=== PATIENT | female | born 1950 | race Caucasian/White ===

== ENCOUNTER 2018-05-27 11:59 | Inpatient (IN) | payer MEDICARE, BC ==
[2018-05-27 12:52] LABS: #Basophils 0.1 thou/uL (0.0-0.2); #Eosinphils 0.3 thou/uL (0.0-0.7); #Lymphocytes 2.4 thou/uL (1.20-3.40); #Monocytes 0.8 thou/uL (0.11-0.59); #Neutrophils 4.9 thou/uL (1.40-6.50); %Basophils 0.8 % (0.0-1.0); %Eosinophils 3.2 % (0.0-10.0); %Monocytes 9.5 % (0.0-10.0); %Neutrophils 58.5 % (42.0-75.0); Hemoglobin 13.3 g/dL (12.0-16.0); Mean Corpuscular HGB CONC 32.3 g/dL (32.0-36.0); Mean Corpuscular Hemoglobin 29.6 pg (27.0-31.0); Mean Corpuscular Volume 91.5 fL (78.0-98.0); Mean Platelet Volume 6.8 fL (7.4-10.4); Platelet Count 336 thou/uL (130-400); RBC Distribution Width 11.9 % (11.5-14.5); Red Blood Cell (RBC) Count 4.49 mill/uL (4.20-5.40); White Blood Cell (WBC) Count 8.4 thou/uL (4.8-10.8)
[2018-05-27] MEDS ORDERED: Albuterol Sulfate 2.5 mg/0.5 ml Neb ONE ×2 (12:58)
--- NOTE | 2018-05-27 13:04 | RAD ---
FChest 2 views HISTORY: Dyspnea. Lung cancer. COMPARISON: 07/04/2015. FINDINGS: Cardiac silhouette and pulmonary vasculature are unremarkable. Lungs remain prominently hyp erinflated. Mediastinum is midline. No confluent airspace consolidation, pneumothorax, or pleural flu id. IMPRESSION: Severe emphysematous changes appear stable. No active cardiopulmonary abnormalities are o therwise demonstrated.
[2018-05-27 13:09] LABS: Actual Bicarbonate (HCO3a) 27.3 mEq/L (22-28); Analyzer IN Cardio ER; Base Excess (BEa) 3.5 mEq/L (-2.0 to +3.0); CO2 Tension 38.5 mmHg (35.0-45.0); Calcium, Ionized 1.22 mmol/L (1.12-1.30); Carboxyhemoglobin (COHb) 0.4 gm% (0.0-3.0); O2 Tension (PaO2) 65.5 mmHg (> 80.0); Potassium - ABG Lab 4.42 mmol/L (3.70-5.30); Puncture Site RRA; pH, Arterial 7.47 (7.35-7.45)
[2018-05-27 13:10] LABS: ALV-art Gradient 36.105 (0-20)
[2018-05-27 13:12] LABS: ALT (SGPT) 14 U/L (8-55); AST (SGOT) 24 U/L (5-34); Albumin 4.7 g/dL (3.4-4.8); Alkaline Phosphatase 101 U/L (40-150); Anion Gap 17 mmol/L (10-20); BUN (Urea Nitrogen) 18 mg/dL (9.8-20.1); Bilirubin, Total 0.7 mg/dL (0.2-1.2); CK (CPK) 161 U/L (29-168); Calc. Creatinine Clearance 0 mL/min (70-130); Calcium 10.3 mg/dL (7.8-10.44); Carbon Dioxide 27 mmol/L (23-31); Chloride 98 mmol/L (98-107); Estimated GFR-MDRD 76; Globulin 2.8 g/dL (2.4-3.5); Glucose 89 mg/dL (80-115); Lipase 32 U/L (8-78); Potassium 5.2 mmol/L (3.5-5.1); Protein, Total 7.5 g/dL (6.0-8.3); Sodium 137 mmol/L (136-145)
[2018-05-27] MEDS ORDERED: Dexamethasone 4 mg/ml Vial ONE (13:21)
[2018-05-27] MEDS ORDERED: Magnesium 2 GM/50 ML BAG (IN WATER) ONE (13:21)
[2018-05-27] MEDS ORDERED: Ondansetron PF 4 MG/2 ML Vial IVP PRN (15:26)
[2018-05-27] MEDS ORDERED: Sodium Chloride 0.9% 1,000 ML IV SCH (15:26)
[2018-05-27] MEDS ORDERED: Ondansetron ODT 4 MG TAB SL PRN (15:26)
[2018-05-27] MEDS ORDERED: Acetaminophen 325 MG TAB PO PRN (15:38)
[2018-05-27 16:10] LABS: Troponin I Less than 0.010 ng/mL (< 0.028)
[2018-05-27 18:03] VITALS: BMI 18.6
[2018-05-27 18:48] LABS: Troponin I Less than 0.010 ng/mL (< 0.028)
[2018-05-27] MEDS: methylPREDNISolone Sod Succ 40 MG VIAL IVP SCH (18:53)
[2018-05-27] MEDS ORDERED: Prevnar 13-Val Conj/PF 0.5 ML SYRINGE IM ONE (21:00)
[2018-05-27] MEDS ORDERED: Dexamethasone 10 MG in Sodium Chloride 0.9% 50 ML IVPB SCH (21:00)
--- NOTE | 2018-05-27 22:42 | HP ---
CHIEF COMPLAINT: Shortness of breath. HISTORY OF PRESENT ILLNESS: This patient is a 67-year-old female with history of COPD and emphysema requiring home oxygen. The patient has a nebulizer and then ProAir HFA inhaler. She reports that on May 20, she started having some increasing shortness of breath. She was using her home oxygen and her usual medications including the nebs which she had essentially stopped for a number of months. She seemed to get better during the day, but had a waxing and waning course, frequently having recurrences around 2 a.m. in the morning where she would awaken with more severe shortness of breath, use her nebs and would be able to get through. However, today the patient had usual followup with Dr. Mcmullen and was referred to the emergency department because of her breathing. The patient has a history of right lower lobe lung cancer and had to go for a followup CT scan prior to coming to the hospital. She states that she did not use her nebulizer treatment this morning. She does have a cough that is worse with nebulizers and producing yellow to whitish phlegm. She has chills. She has some subjective fever, but has been monitoring at home and has had no documented fevers. REVIEW OF SYSTEMS: Also notable for decreased appetite, especially in the mornings. She is using some nutritional supplementation. She has frequent diarrhea for the last 4 to 5 days. She reports she has lost 6 pounds since November. All other systems were reviewed and all pertinent positives and negatives are noted in the HPI. PAST MEDICAL HISTORY: Notable for the COPD and emphysema. She has had the right lower lobe lung cancer. She has been following with Dr. Zavaleta and has radiation therapy only. No surgery or chemotherapy. She has a history of right 5th and 6th rib fractures which she states have not healed properly, continue to cause some popping and have challenged her breathing further. PAST SURGICAL HISTORY: Lung biopsy. FAMILY HISTORY: Father of lung cancer. Mother at 95. SOCIAL HISTORY: The patient smoked a pack to a pack and half of cigarettes per day, but none now. Denies alcohol or drugs. She is . Her 's name is Дмитрий Luis. She is full code and her would be her surrogate decision maker. ALLERGIES: NONE. CURRENT MEDICATIONS: 1. Anoro Ellipta. 2. ProAir HFA. 3. Citalopram. PHYSICAL EXAMINATION: VITAL SIGNS: BP 145/74, pulse 95, respirations 24, temperature 97.9, O2 saturations 97% on room air, although the patient is wearing oxygen now and typically worse at her home, so I actually suspect that was more likely on supplemental oxygen. GENERAL APPEARANCE: Thin, age-appropriate female. She is tachypneic. She is able to speak reasonably well. She has no distress. HEENT: PERRL. No OP lesions. NECK: Supple and symmetric without lymphadenopathy, JVD, or carotid bruits. HEART: Regular rate and rhythm without murmurs, gallops, or rubs. LUNGS: Notable for being diminished. She has some scattered rales with modest wheezing. ABDOMEN: Soft, nontender, and nondistended. Positive bowel sounds. No masses. No organomegaly. EXTREMITIES: No cyanosis, clubbing, or edema. Peripheral pulses are present. SKIN: Reveals multiple superficial well-healed scars over the upper back with a couple of small superficial scabbed areas a few mm in size. PSYCH: The patient has generally normal affect and behavior. She appears to be a little bit excitable. NEURO: The patient is alert and oriented x3. Appears to be grossly intact with no evidence of focal deficits. LABORATORY DATA: Her EKG shows sinus tachycardia with occasional PVCs and some biatrial enlargement. Chest x-ray shows hyperinflated lungs consistent with COPD, but no consolidations. White count 8.4, hemoglobin 13.3, platelets 336. D-dimer was 0.27. ABG, pH 7.47, pCO2 38.5, PO2 65.5. Sodium 137, potassium 5.2, chloride 98, CO2 27, BUN 18, creatinine 0.76. LFTs are normal. ER COURSE: The patient received Decadron, Levaquin, DuoNeb and magnesium and says she is doing somewhat better. IMPRESSION AND PLAN: 1. Acute chronic obstructive pulmonary disease exacerbation. The patient is home oxygen-dependent because of chronic obstructive pulmonary disease and emphysema, symptomatically worse. Continue in observation status with nebulizer treatments, steroids, and cover what sounds like some associated bronchitis with yellowish sputum with Levaquin. The patient has had other long-acting beta agonist and steroid inhalers including Anoro Ellipta. However, she states that in the past she has had thrush with these and did not like the Anoro, may need to give some consideration to some type of an additional long-acting beta agonist or inhaled steroid at the time of discharge. 2. Chest pain. The patient reported some burning sensation with her chest, which I believe is simply due to chronic obstructive pulmonary disease. She will remain on telemetry and get a 3rd set of troponins to effectively rule that out. Job ID: [id number]
[2018-05-28] MEDS: methylPREDNISolone Sod Succ 40 MG VIAL IVP SCH ×5 (00:31→19:50)
[2018-05-28] MEDS: Citalopram 20 MG TAB PO SCH ×2 (08:44→08:45)
--- NOTE | 2018-05-28 19:47 | PRG ---
DATE OF SERVICE: 05/28/2018 SUBJECTIVE: Ms. Denton is a 67-year-old female with past medical history significant for right upper lobe non-small cell carcinoma, status post radiation ; history of breast cancer; and advanced COPD, who presented at the behest of Dr. Mcmullen with complaints of worsening shortness of breath since May 20. The patient states that she has had no relief at home from her nebulizer treatments or her rescue inhaler. She has been admitted with acute COPD exacerbation. Despite IV Solu-Medrol, antibiotics, and breathing treatments, the patient states that she has not experienced any relief as far as her dyspnea on exertion. She continues to feel very short of breath. She denies any chest pain, nausea, vomiting, fever, or chills. Her appetite remains good. She states that she gets exhausted and very short of breath with any conversation that she tries to have. OBJECTIVE: VITAL SIGNS: Blood pressure 134/76, pulse is 112, temperature 98.4 , O2 saturation is 96% on 3 L via nasal cannula. GENERAL: This is a very thin female, resting in bed, who does get visibly winded with conversation and speech. Pursed lip breathing HEENT: Head; atraumatic, normocephalic. Mucous membranes appear moist. There is no drainage. NECK: No apparent lymphadenopathy. Trachea is midline. No JVD. CV: S1 and S2. Regular rate. Mildly tachycardic. No appreciable murmurs, rubs, or gallops. LUNGS: Regular respiratory rate and pattern. I discern no crackles or rhonchi. Occasional expiratory wheeze, and overall decreased breath sounds throughout. ABDOMEN: Positive bowel sounds. Soft, nontender. EXTREMITIES: No edema. SKIN: No rashes. Warm and dry. LABORATORY DATA: White blood cell count 8.4, hemoglobin 13.3, hematocrit 41.1, MCV 91.5, platelets are 336. D-dimer less than 0.27. Blood gas yesterday on the revealed a pH of 7.47, pCO2 of 38.5, ABG pO2 of 65. Hematocrit 38, hemoglobin 13. Potassium 4.42. Chemistry; sodium was 137, chloride 98, BUN 18, creatinine 0.76. Liver function enzymes within normal limits. BNP 32. Troponin was negative. ASSESSMENT: 1. Acute chronic obstructive pulmonary disease exacerbation, with minimal improvement in symptoms despite IV steroids, antibiotics, and breathing treatments. 2. Chronic obstructive pulmonary disease/emphysema, oxygen dependent. 3. Right upper lobe lung cancer which I believe is non-small cell carcinoma per review of records, status post radiation. 4. History of breast cancer. 5. Chest pain at presentation, resolved. Acute coronary syndrome ruled out. PLAN: We will obtain labs in the morning. Given the patient's advanced COPD and minimal symptomatic improvement despite IV medical therapy, the patient does meet inpatient status. She is at high risk for complications and decompensation. We will consult Pulmonology for further recommendations for optimization of her medical therapy. Further recommendations based on hospital course. Care discussed with Dr. Gardner, who agrees with the above. Continue current management. Job ID: [id number] [facility]TDD
[2018-05-29] MEDS: methylPREDNISolone Sod Succ 40 MG VIAL IVP SCH ×2 (02:02→08:58)
[2018-05-29 07:13] LABS: #Lymphocytes 0.5 thou/uL (1.20-3.40); #Monocytes 0.3 thou/uL (0.11-0.59); #Neutrophils 12.6 thou/uL (1.40-6.50); %Basophils 0.2 % (0.0-1.0); %Eosinophils 0.2 % (0.0-10.0); %Lymphocytes 3.5 % (21.0-51.0); %Monocytes 2.4 % (0.0-10.0); %Neutrophils 93.8 % (42.0-75.0); Hemoglobin 10.8 g/dL (12.0-16.0); Mean Corpuscular HGB CONC 32.3 g/dL (32.0-36.0); Mean Corpuscular Hemoglobin 29.6 pg (27.0-31.0); Mean Corpuscular Volume 91.9 fL (78.0-98.0); Mean Platelet Volume 6.3 fL (7.4-10.4); Platelet Count 284 thou/uL (130-400); RBC Distribution Width 11.9 % (11.5-14.5); Red Blood Cell (RBC) Count 3.63 mill/uL (4.20-5.40); White Blood Cell (WBC) Count 13.4 thou/uL (4.8-10.8)
[2018-05-29] MEDS: Citalopram 20 MG TAB PO SCH ×2 (08:59)
--- NOTE | 2018-05-29 11:16 | PRG ---
DATE OF SERVICE: 05/29/2018 SUBJECTIVE: The patient is seen and examined at the bedside. She started feeling better. Her shortness of breath is improved. OBJECTIVE: VITAL SIGNS: Blood pressure is 117/62, pulse is 96, respiratory rate is 18, O2 saturation is 97% on 2 L by nasal cannula, temperature is 98.3, maximal temperature is 98.6. HEENT: Head is atraumatic and normocephalic. Eyes are PERRLA. Sclerae are nonicteric. Conjunctivae are palish. Oral mucosa is moist. NECK: Supple. LUNGS: Emphysematous. No crackles, rales. Very sporadic wheezing bilaterally. HEART: S1 and S2, somewhat tachycardic. No S3, no S4. ABDOMEN: Soft and nontender. Bowel sounds are present. No organomegaly. EXTREMITIES: No clubbing, cyanosis, or edema. NEUROLOGIC: She follows my commands. She moves her all four extremities. There are no any motor deficits. LABORATORY DATA: White count of 13.4, hemoglobin 10.8, hematocrit 33.4, and platelet count is 284,000. IMPRESSION: 1. Acute exacerbation of chronic obstructive pulmonary disease, emphysematous type. 2. Right upper lobe lung cancer, which is non-small cell carcinoma per records. 3. History of breast cancer. 4. Chest pain at presentation, resolved. Acute coronary syndrome was ruled out. PLAN: The patient is feeling better and her steroids started working. At this point, we will continue her current regimen. Pulmonology consult is requested. Dr. Ortiz is supposed to see her today, but for now, we will continue current regimen and DVT prophylaxis. Job ID: [id number]
--- NOTE | 2018-05-29 14:53 | CON ---
DATE OF CONSULTATION: 05/29/2018 SERVICE: Pulmonary Medicine. REASON FOR CONSULTATION: COPD exacerbation. HISTORY OF PRESENT ILLNESS: The patient is a 67-year-old white female with past medical history significant for horrendous COPD. She takes Anoro Ellipta. When she is breathing well, this medicine seems to do the trick. That being said, starting about 8 days ago, she felt like she just simply was not getting this medication anymore. She then had an increasing severe dyspnea. She had an increasing cough, but no sputum production. She denies any current fevers or chills. There are no sick contacts other than the cat, who is dying with cancer. Otherwise, she is in her usual state of health. She presented to the emergency department because she was having frequent episodes of waking up in the middle of the night short of breath. She was having any chest pain or palpitations. On one occasion, she had severe reflux type symptoms. In the emergency department, she was given steroids, nebulized medications, and antibiotics. She was also put on some oxygen. She is starting to feel a little bit better. Last night, she had an uneventful evening. She likes sleeping upright. PAST MEDICAL HISTORY: 1. Chronic hypoxic respiratory failure. 2. COPD, horrendous. 3. Right lower lobe cancer, status post radiation therapy only. PAST SURGICAL HISTORY: Lung biopsy. FAMILY HISTORY: Noncontributory. SOCIAL HISTORY: She has a greater than 50 pack-year history of smoking, but quit several years ago. Denies any alcohol or illicit drugs. She has no exposure to chemicals, dust, asbestos, or tuberculosis otherwise. ALLERGIES: NO KNOWN DRUG ALLERGIES. MEDICATIONS: List of her inpatient medications was reviewed. Multiple updates were made at this time. REVIEW OF SYSTEMS: General; head eyes, ears, nose, and throat; cardiovascular, respiratory, GI, , musculoskeletal, neurologic, and skin are negative, except as mentioned in the HPI. PHYSICAL EXAMINATION: VITAL SIGNS: Afebrile, pulse 114, blood pressure 126/58, respirations 20, saturation 93% on 2 L nasal cannula. GENERAL: The patient is awake and alert, in no apparent distress. LUNGS: Very reduced air entry. There is a prolonged expiratory phase. No crackles or wheezing is appreciated. That being said, she is really not moving enough air to appreciate adventitious sounds. HEART: Normal rate and regular. ABDOMEN: Soft, nontender, nondistended. Bowel sounds are positive. MUSCULOSKELETAL: No cyanosis or clubbing. No pitting in the bilateral lower extremities. NEUROLOGIC: Grossly nonfocal. LABORATORY DATA: WBC 13.4, hemoglobin 10.8, platelets 284,000. D-dimer less than the assay limit of 0.27. PH of 7.47, pCO2 of 38, pO2 of 65. This was on room air at the time. Basic metabolic profile and liver function studies are otherwise unremarkable. Troponin is negative x3. BNP 32. Blood cultures x2 are unremarkable. IMAGING STUDIES: Chest x-ray demonstrates profound hyperexpansion of the bilateral lung coronado. ASSESSMENT: 1. Acute on chronic hypoxic respiratory failure. 2. Chronic obstructive pulmonary disease with acute exacerbation. 3. Lung cancer, status post radiation therapy. DISCUSSION AND PLAN: The patient is doing fine from respiratory standpoint. She is progressing as expected. We will switch her steroids over to p.o. prednisone. We will continue our frequent nebulized medications. She would like to talk to Dr. Garland about a couple of things in the morning. The first is that she had a CT scan at the [facility] here recently and would like that to be reviewed. The second is that she does not think the Anoro is working well for her and would like to discuss whether or not different therapeutic options are available. Lastly, she will be traveling here soon and needs oxygen with an airline flight that is coming. She was excited to hear that Dr. Garland would be back tomorrow and should be available to answer some of those questions. 70 minutes have been devoted to this patient in various activities. I personally reviewed all imaging studies and laboratory data noted within this document. For fifty percent of this time, I was interacting with the patient at the bedside or coordinating care with the care team. For the remainder of the time I was immediately available to the patient in the hospital unit. Job ID: [id number] [facility]
[2018-05-30] MEDS: Citalopram 20 MG TAB PO SCH ×3 (07:23→14:47)
[2018-05-30] MEDS ORDERED: predniSONE 20 MG TAB PO SCH (08:00)
--- NOTE | 2018-05-30 13:27 | PRG ---
DATE OF SERVICE: 05/30/2018 SUBJECTIVE: The patient is seen and examined at the bedside. She is feeling better. She is awaiting her planting machine crewman, Dr. Garland to ask him several questions. OBJECTIVE: VITAL SIGNS: Blood pressure is 130/59, pulse is 95, temperature 98.0, respiratory rate is 20, O2 saturation is 96% on 2 L by nasal cannula. HEENT: Head is atraumatic and normocephalic. Eyes are PERRLA. Sclerae are nonicteric. Oral mucosa is moist. NECK: Supple. LUNGS: Very emphysematous. Few wheezes bilaterally at both bases. HEART: S1, S2 normal. No S3. No S4. ABDOMEN: Soft, nontender, nondistended. EXTREMITIES: No clubbing, cyanosis, or edema. NEUROLOGICAL: She is following my commands. She is able to move her all 4 extremities. There is no any sensory or motor deficits present. Cranial nerves are intact. LABORATORY DATA: None today. IMPRESSION: 1. Severe chronic obstructive pulmonary disease exacerbation. 2. Right upper lobe lung cancer, which is non-small cell carcinoma per records. 3. History of breast cancer. 4. Chest pain at presentation, resolved and acute coronary syndrome was ruled out. PLAN: Plan is to continue DuoNeb. Continue her levofloxacin. Continue her prednisone and will have followup visit with planting machine crewman, Dr. Garland today. Job ID: [id number]
--- NOTE | 2018-05-30 15:18 | PRG ---
DATE OF SERVICE: 05/30/2018 SUBJECTIVE: Isabella Denton's events have been reviewed. She is not back to her baseline. She is quite talkative and has numerous questions since she has written down. I am used to this in the office, and it actually did not bother me at all. OBJECTIVE: VITAL SIGNS: Heart rate varies between 80 and 115 depending on what she is doing, respiratory rate 16 to 20, she is on a 2 L cannula, oximetry is 95%, blood pressure 130/59. LUNGS: Distant with wheezes bilaterally. HEART: Regular rhythm. ABDOMEN: Soft. EXTREMITIES: Without edema. LABORATORY DATA: Blood gas on admission did not show hypercarbia surprisingly. She is normally not on oxygen when she comes to the office. Chest radiograph showed no infiltrates. IMPRESSION: Chronic obstructive pulmonary disease exacerbation, likely triggered by viral illness. PLAN: I would continue with IV steroids for now until she is a little bit better. 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 I would not be to send her home. She probably has the most severe COPD in my practice not on oxygen yet. 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 She could be switched to p.o. antimicrobial therapy in my opinion. I will add mucolytics. Job ID: [id number]
--- NOTE | 2018-05-30 15:27 | PQF ---
CLINICAL DOCUMENTATION IMPROVEMENT CLARIFICATION FORM: ICD-10 Updated PLEASE DO AN ADDENDUM TO THE PROGRESS NOTE WITH ANY DOCUMENTATION UPDATES OR ADDITIONS AND CARRY THROUGH TO DC SUMMARY. THANK YOU. Date: 05/30/2018; 05/31/2018 ATTN: Dr. Gallo/ Dr. Mike Please exercise your independent, professional judgment in responding to the clarification form. Clinical indicators are provided on the bottom of this form for your review Please check appropriate box(s): [ ] Underweight without malnutrition [ ] Cachexia [ ] Other diagnosis [ ] Unable to determine In addition, please specify: Present on Admission (POA): [ ] Yes [ ] No [ ] Unable to determine CLINICAL INDICATORS - SIGNS / SYMPTOMS / LABS H&P 05/27: ROS: notable decreased appetite, especially in the mornings. She has frequent diarrhea for the last 4-5 days. She reports she has lost 6 pounds since November. Flow Specialist Assessment 05/28: Nutrition dx: Underweight related to COPD as evidenced by BMI of 18.6 RISKS: H&P 05/27: Hx of COPD and emphysema requiring home oxygen. R lower lobe lung cancer. TREATMENT: Dietary Assessment triggered for BMI. Moderate Malnutrition (in acute illness) Energy Intake: <75% of estimated energy requirement for > 7 days Weight Loss: 1-2%/1 week; 5%/ 1 month; 7.5%/3 months Other: mild body fat loss; mild muscle mass loss; mild fluid accumulation; Severe Malnutrition (in acute illness) Energy Intake: < 50% of estimated energy requirement for > 5 days Weight Loss: >1-2%/1 week; >5%/1 month; >7.5%/3 months Other: moderate body fat loss; moderate muscle mass loss; moderate- severe fluid accumulation; measurably reduced credit relationship manager strength Moderate Malnutrition (in chronic illness) Energy Intake: <75% of estimated energy requirement for >1 month Weight Loss: 5%/1 month; 7.5%/3 months; 10%/6 months; 20%/1 year Other: mild body fat loss; mild muscle mass loss; mild fluid accumulation Severe Malnutrition (in chronic illness) Energy Intake: <75% of estimated energy requirement for >1 month Weight Loss: >5%/1 month; >7.5%/3 months; >10%/6 months; >20%/1 year Other: severe body fat loss; severe muscle mass loss; severe fluid accumulation; measurably reduced credit relationship manager strength Thank you, Zulema (This form is maintained as a part of the permanent medical record) 2015 [employer] All Rights Reserved Zulema Nettles RN, BSN [email or web address] Office: [phone] [facility]
[2018-05-30] MEDS: guaiFENesin ER 600 MG TAB PO SCH (20:42)
[2018-05-30] MEDS: methylPREDNISolone Sod Succ 40 MG VIAL IVP SCH (22:00)
[2018-05-31 06:50] LABS: #Lymphocytes 0.7 thou/uL (1.20-3.40); #Monocytes 0.3 thou/uL (0.11-0.59); %Basophils 0.4 % (0.0-1.0); %Eosinophils 0.4 % (0.0-10.0); %Monocytes 4.2 % (0.0-10.0); Mean Corpuscular HGB CONC 32.2 g/dL (32.0-36.0); Mean Corpuscular Hemoglobin 29.5 pg (27.0-31.0); Mean Corpuscular Volume 91.8 fL (78.0-98.0); Mean Platelet Volume 6.3 fL (7.4-10.4); Platelet Count 324 thou/uL (130-400); Red Blood Cell (RBC) Count 4.07 mill/uL (4.20-5.40); White Blood Cell (WBC) Count 8.2 thou/uL (4.8-10.8)
[2018-05-31 07:09] LABS: Anion Gap 12 mmol/L (10-20); BUN (Urea Nitrogen) 13 mg/dL (9.8-20.1); Calc. Creatinine Clearance 69 mL/min (70-130); Calcium 9.3 mg/dL (7.8-10.44); Carbon Dioxide 32 mmol/L (23-31); Chloride 97 mmol/L (98-107); Estimated GFR-MDRD Greater than 90; Glucose 133 mg/dL (80-115); Potassium 4.6 mmol/L (3.5-5.1); Sodium 136 mmol/L (136-145)
[2018-05-31] MEDS: guaiFENesin ER 600 MG TAB PO SCH ×2 (09:36→20:54)
[2018-05-31] MEDS: Citalopram 20 MG TAB PO SCH (09:37)
[2018-05-31] MEDS: methylPREDNISolone Sod Succ 40 MG VIAL IVP SCH ×2 (09:38→20:56)
--- NOTE | 2018-05-31 16:35 | PRG ---
DATE OF SERVICE: 05/31/2018 SUBJECTIVE: Isabella Denton is still getting extremely short of breath just walking to the bathroom. OBJECTIVE: VITAL SIGNS: She is afebrile, heart rate 119, respiratory rate 16, oximetry is 92 on room air and 96 on a cannula, blood pressure 159/76. GENERAL: She sat for 30 minutes after walking to the bathroom, trying to get her breath back. A lot of this is anxiety associated with her dyspnea, but she refuses to let me prescribe anxiolytics. LUNGS: Distant with no wheezes today. HEART: Regular rhythm. ABDOMEN: Soft. LABORATORY DATA: White count 8.2, hemoglobin 12.0, and platelets 324. Sodium 136, potassium 4.6, chloride 97, bicarb 32, BUN 13, and creatinine 0.63. IMPRESSION: 1. Near end-stage chronic obstructive pulmonary disease, but not on home oxygen. 2. Acute on chronic respiratory failure with no hypoxia or hypercarbia this admission documented by blood gas. 3. Cachexia secondary to her chronic obstructive pulmonary disease. 4. Deconditioning secondary to chronic obstructive pulmonary disease. I have written for physical therapy consult. She does start walking now, afraid she never walk again. Her anxiety is a big problem, but she refuses to accept any type of prescription medication for that. She is on citalopram, that is all she wants to take. She says that was started to help her gain weight. She has somewhat of an obsessive-compulsive personality, but she was treating when she smoked with cigarettes. She no longer smokes from what she has told me. Hopefully, we will start seeing her turn the corner here in the next few days. Job ID: [id number]
--- NOTE | 2018-05-31 22:52 | PDOC.PN ---
- Subjective Encounter Start Date: 05/31/18 Encounter Start Time: 10:30 Patient seen and examined for COPD Exacerbation. SOB on mild exertion. Cough with mild production. No other complaints. No overnight events - Objective Resuscitation Status - Order Detail: 05/27/18 15:38 Resuscitation Status Routine Resuscitation Status: FULL: Full Resuscitation MAR Reviewed: Yes Vital Signs & Weight: Vital Signs (12 hours) Temp Pulse Resp BP Pulse Ox 05/31/18 20:00 98.3 F 118 H 18 112/55 L 92 L 05/31/18 18:47 122 H 18 94 L 05/31/18 16:00 98.2 F 112 H 18 165/75 H 92 L 05/31/18 14:34 122 H 18 96 05/31/18 11:48 98.2 F 119 H 16 159/76 H 92 L Weight Admit Weight 108 lb 6.4 oz Weight 108 lb 6.4 oz I&O: 05/30/18 05/31/18 06/01/18 06:59 06:59 06:59 Intake Total 2450 960 Balance 2450 960 Result Diagrams: 05/31/18 05:56 05/31/18 05:56 Phys Exam - Physical Examination Constitutional: NAD Respiratory: no wheezing Scat rhonchi Cardiovascular: RRR, no rub Gastrointestinal: soft, non-tender, positive bowel sounds Musculoskeletal: no edema Neurological: moves all 4 limbs Dx/Plan - Plan DVT proph w/SCDs 1. COPD Exacerbation 2. Moderate PEM 3. Lung Ca s/p radiation 4. Hyperkalemia - improved 5. Physical deconditioning 6. Anxiety PLAN: Cont Nebs/Steroids/Levaquin Add PPI while on steroids Cont to monitor Cont other meds as below Review of Systems - Review of Systems Cardiovascular: negative: chest pain, palpitations, orthopnea, paroxysmal nocturnal dyspnea, edema, light headedness, other Gastrointestinal: negative: Nausea, Vomiting, Abdominal Pain, Diarrhea, Constipation, Melena, Hematochezia, Other - Medications/Allergies Allergies/Adverse Reactions: Allergies Allergy/AdvReac Type Severity Reaction Status Date / Time No Known Allergies Allergy Verified 05/27/18 19:45 Medications: Current Medications Acetaminophen (Tylenol) 650 mg PO Q4H PRN PRN Reason: Headache/Fever/Mild Pain (1-3) Albuterol/Ipratropium (Duoneb) 3 ml NEB [id number] [facility] Last Admin: 05/31/18 18:47 Dose: 3 ml Citalopram Hydrobromide (Celexa) 20 mg PO DAILY [facility] Last Admin: 05/31/18 09:37 Dose: 20 mg Guaifenesin (Mucinex) 600 mg PO Q12HR [facility] Last Admin: 05/31/18 20:54 Dose: 600 mg Levofloxacin (Levaquin) 500 mg PO 0600 [facility] Last Admin: 05/31/18 06:08 Dose: 500 mg Methylprednisolone Sodium Succinate (Solu-Medrol) 40 mg IVP Q12HR [facility] Last Admin: 05/31/18 20:56 Dose: 40 mg
[2018-06-01] MEDS: methylPREDNISolone Sod Succ 40 MG VIAL IVP SCH ×2 (10:14→20:28)
[2018-06-01] MEDS: guaiFENesin ER 600 MG TAB PO SCH ×2 (10:15→20:28)
[2018-06-01] MEDS: Citalopram 20 MG TAB PO SCH (10:15)
[2018-06-01] MEDS: Multivit, Therapeutic 1 TAB PO SCH (10:16)
[2018-06-01] MEDS ORDERED: ALPRAZolam 0.25 MG TAB PO SCH (14:45)
--- NOTE | 2018-06-01 19:53 | PRG ---
DATE OF SERVICE: 06/01/2018 SUBJECTIVE: Isabella Denton is still getting very short of breath walking to the bathroom. She informed me today that her brother has progressive supranuclear palsy and was intubated recently with pneumonia. He was bedridden prior to that. I have explained to her that it is unlikely that he will survive this illness. She is very upset because she wants to be up there with him, although she has not seen him in quite some time. During a conversation, she told me under no circumstances which she ever to be intubated. She was very firm about this, so [id number] orders have been entered in the computer. Lungs, heart, and abdomen are essentially unchanged. Vital signs have been reasonably stable. She still has resting tachycardia, aggravated by moving around. She is also extremely anxious. I did convince her to take half of a 0.125 mg of Xanax this afternoon to see if this helps. She is worried about getting hooked on anxiety drugs, but as I have explained to her she has a severe anxiety issue that she is always treated with tobacco. Now, she is not smoking, so she does not do well with these situations. We will continue to follow. She is not ready for discharge. She may benefit from going to a nursing home unit for physical therapy, in my opinion, down in the [place] area if there is anything available down there. Job ID: [id number]
--- NOTE | 2018-06-01 23:49 | PDOC.PN ---
- Subjective Encounter Start Date: 06/01/18 Encounter Start Time: 14:30 Patient seen and examined for COPD flare. SOB on minimal exertion. No other complaints. No overnight events - Objective Resuscitation Status - Order Detail: 06/01/18 14:07 Resuscitation Status Routine Resuscitation Status: DNAR: NO Resuscitation Discussed with: told me never...was discussing her brother who is on vent and she brought Additional comments: this up unsolicited.."never ever" "I dont believe in it " MAR Reviewed: Yes Vital Signs & Weight: Vital Signs (12 hours) Temp Pulse Pulse Resp BP BP Pulse Ox 06/01/18 22:31 118 H 18 96 06/01/18 20:00 95 06/01/18 19:30 97.8 F 113 H 18 131/60 95 06/01/18 18:12 125 H 18 96 06/01/18 16:00 98.9 F 120 H 16 147/74 H 93 L 06/01/18 13:45 139 H Pulse Ox Pulse Ox Pulse Ox 06/01/18 22:31 06/01/18 20:00 06/01/18 19:30 06/01/18 18:12 06/01/18 16:00 06/01/18 13:45 92 L 89 L 92 L Weight Admit Weight 108 lb 6.4 oz Weight 108 lb 6.4 oz I&O: 05/31/18 06/01/18 06/02/18 06:59 06:59 06:59 Intake Total 960 480 Balance 960 480 Result Diagrams: 05/31/18 05:56 05/31/18 05:56 Phys Exam - Physical Examination Constitutional: NAD Respiratory: no wheezing, no rhonchi Cardiovascular: RRR, no rub Gastrointestinal: soft, non-tender, positive bowel sounds Musculoskeletal: no edema Dx/Plan - Plan DVT proph w/SCDs 1. COPD Exacerbation 2. Moderate PEM 3. Lung Ca s/p radiation 4. Hyperkalemia - improved 5. Physical deconditioning 6. Anxiety PLAN: Cont Nebs Cont Steroids and Atbx SNF Eval Review of Systems - Review of Systems Respiratory: Cough, SOB with Excertion. negative: Dry, Shortness of Breath, Hemoptysis, Pleuritic Pain, Sputum, Wheezing Cardiovascular: negative: chest pain, palpitations, orthopnea, paroxysmal nocturnal dyspnea, edema, light headedness, other Gastrointestinal: negative: Nausea, Vomiting, Abdominal Pain, Diarrhea, Constipation, Melena, Hematochezia, Other - Medications/Allergies Allergies/Adverse Reactions: Allergies Allergy/AdvReac Type Severity Reaction Status Date / Time No Known Allergies Allergy Verified 05/27/18 19:45 Medications: Current Medications Acetaminophen (Tylenol) 650 mg PO Q4H PRN PRN Reason: Headache/Fever/Mild Pain (1-3) Albuterol/Ipratropium (Duoneb) 3 ml NEB [id number] [facility] Last Admin: 06/01/18 22:31 Dose: 3 ml Citalopram Hydrobromide (Celexa) 20 mg PO DAILY [facility] Last Admin: 06/01/18 10:15 Dose: 20 mg Guaifenesin (Mucinex) 600 mg PO Q12HR [facility] Last Admin: 06/01/18 20:28 Dose: 600 mg Levofloxacin (Levaquin) 500 mg PO 0600 [facility] Last Admin: 06/01/18 05:30 Dose: 500 mg Methylprednisolone Sodium Succinate (Solu-Medrol) 40 mg IVP Q12HR [facility] Last Admin: 06/01/18 20:28 Dose: 40 mg Multivitamins (Theragran) 1 tab PO DAILY [facility] Last Admin: 06/01/18 10:16 Dose: 1 tab Pantoprazole Sodium (Protonix) 40 mg PO DAILY [facility] Last Admin: 06/01/18 10:15 Dose: 40 mg
[2018-06-02] MEDS: methylPREDNISolone Sod Succ 40 MG VIAL IVP SCH (08:43)
[2018-06-02] MEDS: guaiFENesin ER 600 MG TAB PO SCH ×2 (08:43→20:10)
[2018-06-02] MEDS ORDERED: PROVENTIL INHALER 6.7 G (200 INHALATIONS) INH PRN (08:43)
[2018-06-02] MEDS: Citalopram 20 MG TAB PO SCH (08:43)
[2018-06-02] MEDS: Multivit, Therapeutic 1 TAB PO SCH (08:44)
[2018-06-02] MEDS ORDERED: ALPRAZolam 0.25 MG TAB PO PRN (09:44)
--- NOTE | 2018-06-02 10:38 | PRG ---
DATE OF SERVICE: 06/02/2018 SUBJECTIVE: Corrie says she is doing much better today. She really thinks the alprazolam made the huge difference. She actually was able to go to sleep for a while yesterday and slept well last night. She actually admits that she would not mind having that available if she needs it. The lungs are clear with only end-expiratory wheezes. I am hoping that we can get her home in 24 to 48 hours. I will taper off IV steroids today. Job ID: [id number]
--- NOTE | 2018-06-02 18:20 | PDOC.PN ---
- Subjective Encounter Start Date: 06/02/18 Encounter Start Time: 18:00 Patient seen and examined for COPD exacerbation. No new complaints. No overnight events - Objective Resuscitation Status - Order Detail: 06/01/18 14:07 Resuscitation Status Routine Resuscitation Status: DNAR: NO Resuscitation Discussed with: told me never...was discussing her brother who is on vent and she brought Additional comments: this up unsolicited.."never ever" "I dont believe in it " MAR Reviewed: Yes Vital Signs & Weight: Vital Signs (12 hours) Temp Pulse Resp BP BP Pulse Ox Pulse Ox 06/02/18 16:00 97.6 F 126 H 18 140/68 92 L 06/02/18 14:17 92 L 06/02/18 13:57 128 H 22 H 94 L 06/02/18 12:00 97.7 F 125 H 18 140/70 94 L 06/02/18 10:01 118 H 20 94 L 06/02/18 08:00 97.7 F 133 H 20 168/82 H 94 L 06/02/18 06:46 100 18 97 Pulse Ox Pulse Ox 06/02/18 16:00 06/02/18 14:17 86 L 94 L 06/02/18 13:57 06/02/18 12:00 06/02/18 10:01 06/02/18 08:00 06/02/18 06:46 Weight Admit Weight 108 lb 6.4 oz Weight 108 lb 6.4 oz I&O: 06/01/18 06/02/18 06/03/18 06:59 06:59 06:59 Intake Total 960 480 Balance 960 480 Result Diagrams: 05/31/18 05:56 05/31/18 05:56 Phys Exam - Physical Examination Constitutional: NAD Respiratory: wheezing present Scat rhonchi Cardiovascular: RRR, no rub Gastrointestinal: soft, positive bowel sounds Musculoskeletal: no edema Dx/Plan - Plan DVT proph w/SCDs 1. COPD Exacerbation 2. Moderate PEM 3. Lung Ca s/p radiation 4. Hyperkalemia - improved 5. Physical deconditioning 6. Anxiety PLAN: Cont Nebs/Steroids/Atbx Review of Systems - Review of Systems Respiratory: negative: Cough, Dry, Shortness of Breath, Hemoptysis, SOB with Excertion, Pleuritic Pain, Sputum, Wheezing Cardiovascular: negative: chest pain, palpitations, orthopnea, paroxysmal nocturnal dyspnea, edema, light headedness, other - Medications/Allergies Allergies/Adverse Reactions: Allergies Allergy/AdvReac Type Severity Reaction Status Date / Time No Known Allergies Allergy Verified 05/27/18 19:45 Medications: Current Medications Acetaminophen (Tylenol) 650 mg PO Q4H PRN PRN Reason: Headache/Fever/Mild Pain (1-3) Albuterol Sulfate (Proventil Hfa) 2 puff INH Q2H PRN PRN Reason: SOB &/or Wheezing Albuterol/Ipratropium (Duoneb) 3 ml NEB [id number] [facility] Last Admin: 06/02/18 18:19 Dose: 3 ml Albuterol/Ipratropium (Duoneb) 3 ml NEB [id number] PRN PRN Reason: SOB &/or Wheezing Alprazolam (Xanax) 0.0625 mg PO BIDPRN PRN PRN Reason: Anxiety Last Admin: 06/02/18 11:17 Dose: 0.0625 mg Citalopram Hydrobromide (Celexa) 20 mg PO DAILY [facility] Last Admin: 06/02/18 08:43 Dose: 20 mg Guaifenesin (Mucinex) 600 mg PO Q12HR [facility] Last Admin: 06/02/18 08:43 Dose: 600 mg Levofloxacin (Levaquin) 500 mg PO 0600 [facility] Last Admin: 06/02/18 06:16 Dose: 500 mg Multivitamins (Theragran) 1 tab PO DAILY [facility] Last Admin: 06/02/18 08:44 Dose: 1 tab Pantoprazole Sodium (Protonix) 40 mg PO DAILY [facility] Last Admin: 06/02/18 08:44 Dose: 40 mg Prednisone (Prednisone) [address] [facility]
[2018-06-03] MEDS: predniSONE 20 MG TAB PO SCH (08:23)
[2018-06-03] MEDS: Multivit, Therapeutic 1 TAB PO SCH (08:24)
[2018-06-03] MEDS: Citalopram 20 MG TAB PO SCH (08:24)
[2018-06-03] MEDS: guaiFENesin ER 600 MG TAB PO SCH ×2 (08:26→20:20)
--- NOTE | 2018-06-03 13:33 | PDOC.PN ---
- Subjective Encounter Start Date: 06/03/18 Encounter Start Time: 12:00 Patient seen and examined for COPD exacerbation. Productive cough +. No new complaints. No overnight events - Objective Resuscitation Status - Order Detail: 06/01/18 14:07 Resuscitation Status Routine Resuscitation Status: DNAR: NO Resuscitation Discussed with: told me never...was discussing her brother who is on vent and she brought Additional comments: this up unsolicited.."never ever" "I dont believe in it " MAR Reviewed: Yes Vital Signs & Weight: Vital Signs (12 hours) Temp Pulse Resp BP Pulse Ox 06/03/18 11:44 98.0 F 114 H 22 H 99/61 92 L 06/03/18 10:20 116 H 22 H 96 06/03/18 08:00 116 H 92 L 06/03/18 07:56 98.2 F 133 H 22 H 120/96 H 92 L 06/03/18 07:33 114 H 24 H 98 06/03/18 04:00 98 20 96 Weight Admit Weight 108 lb 6.4 oz Weight 108 lb 6.4 oz I&O: 06/02/18 06/03/18 06/04/18 06:59 06:59 06:59 Intake Total 480 Balance 480 Result Diagrams: 05/31/18 05:56 05/31/18 05:56 Phys Exam - Physical Examination Constitutional: NAD Respiratory: no wheezing Scat rhonchi Cardiovascular: RRR, no rub Gastrointestinal: soft, non-tender, positive bowel sounds Musculoskeletal: no edema Neurological: moves all 4 limbs Dx/Plan - Plan DVT proph w/SCDs 1. COPD Exacerbation 2. Moderate PEM 3. Lung Ca s/p radiation 4. Hyperkalemia - improved 5. Physical deconditioning 6. Anxiety PLAN: Cont Nebs/Atbx Cont oral Prednisone Review of Systems - Review of Systems Constitutional: negative: fever, chills, sweats, weakness, malaise, other Gastrointestinal: negative: Nausea, Vomiting, Abdominal Pain, Diarrhea, Constipation, Melena, Hematochezia, Other - Medications/Allergies Allergies/Adverse Reactions: Allergies Allergy/AdvReac Type Severity Reaction Status Date / Time No Known Allergies Allergy Verified 05/27/18 19:45 Medications: Current Medications Acetaminophen (Tylenol) 650 mg PO Q4H PRN PRN Reason: Headache/Fever/Mild Pain (1-3) Albuterol Sulfate (Proventil Hfa) 2 puff INH Q2H PRN PRN Reason: SOB &/or Wheezing Albuterol/Ipratropium (Duoneb) 3 ml NEB [id number] [facility] Last Admin: 06/03/18 10:20 Dose: 3 ml Albuterol/Ipratropium (Duoneb) 3 ml NEB [id number] PRN PRN Reason: SOB &/or Wheezing Alprazolam (Xanax) 0.0625 mg PO BIDPRN PRN PRN Reason: Anxiety Last Admin: 06/02/18 11:17 Dose: 0.0625 mg Citalopram Hydrobromide (Celexa) 20 mg PO DAILY [facility] Last Admin: 06/03/18 08:24 Dose: 20 mg Guaifenesin (Mucinex) 600 mg PO Q12HR [facility] Last Admin: 06/03/18 08:26 Dose: Not Given Levofloxacin (Levaquin) 500 mg PO 0600 [facility] Last Admin: 06/03/18 05:50 Dose: 500 mg Multivitamins (Theragran) 1 tab PO DAILY [facility] Last Admin: 06/03/18 08:24 Dose: 1 tab Pantoprazole Sodium (Protonix) 40 mg PO DAILY [facility] Last Admin: 06/03/18 08:24 Dose: 40 mg Prednisone (Prednisone) 40 mg PO [facility] Last Admin: 06/03/18 08:23 Dose: 40 mg
--- NOTE | 2018-06-03 17:04 | PRG ---
DATE OF SERVICE: 06/03/2018 SUBJECTIVE: Isabella Denton is afebrile. OBJECTIVE: VITAL SIGNS: Heart rate is 114, respiratory rate is 22, oximetry is 92% to 95% on 2 L, blood pressure 115/54. She believes her brother will be taken off life support here in the next 24 hours. LUNGS: Distant clear. HEART: Regular rhythm. ABDOMEN: Soft. Physical therapy did not walk her yesterday because of her tachycardia. She always has a resting tachycardia because of her chronic obstructive pulmonary disease. She has to ambulate before she can go home. Hopefully, we can get her ambulating and then discharge in 24 to 48 hours. Job ID: [id number]
[2018-06-04] MEDS: Citalopram 20 MG TAB PO SCH (08:27)
[2018-06-04] MEDS: predniSONE 20 MG TAB PO SCH (08:27)
[2018-06-04] MEDS: guaiFENesin ER 600 MG TAB PO SCH (08:27)
[2018-06-04] MEDS: Multivit, Therapeutic 1 TAB PO SCH (08:28)
[2018-06-04 17:36] VITALS: BP 133/68; TEMP 99.4
--- NOTE | 2018-06-04 19:55 | PRG ---
DATE OF SERVICE: 06/04/2018 SUBJECTIVE: Isabella Denton did well. She told me exactly how many steps she took yesterday and today walking. She wants to go home. I did convince her to take home 30 of 0.125 Xanax tablets, so she would take a half one when she needs one. Her brother has been terminally extubated. There is no way she can get up to be there. She is no longer wheezing. I think she is close to her baseline. She will take 40 of prednisone 4 days and 20 till she sees me in a couple of weeks. She will take another week of antibiotics. She will continue the nebulizer treatments. I have refilled ipratropium and albuterol prescription for. Job ID: [id number]
--- NOTE | 2018-06-05 02:00 | DIS ---
DATE OF ADMISSION: 05/28/2018 DATE OF DISCHARGE: 06/04/2018 FINAL DIAGNOSES: 1. Severe emphysema/chronic obstructive pulmonary disease exacerbation. 2. Lung cancer, status post radiation. 3. Hyperkalemia, improved. 4. Physical deconditioning. 5. Anxiety. 6. History of breast cancer. 7. Chest pain at presentation and resolved and acute coronary syndrome was ruled out. FILM SOUND COORDINATOR: Dr. Adrien Garland, Pulmonary Service. HOSPITAL COURSE: The patient was a 67-year-old female with history of COPD and emphysema requiring home oxygen. The patient was seen by her PCP, Dr. Mcmullen, and she was referred to the emergency department because of her breathing. She had cough, which was a worsen and she was using nebulizers. She had some chills and subjective fever. She came to the emergency room and her respirations were 24 at the time of admission to the hospital, although her saturation was 97%. Her white count was 8.4, hemoglobin 13.3, platelet count 336. D-dimers were 0.027. ABGs showed pH of 7.47, pCO2 of 38.5, PO2 65.5. Her chemistry was unremarkable. EKG showed sinus tachycardia with occasional PVCs and some bilateral enlargement. Chest x-ray showed hyperinflated lungs consistent with COPD. There was no any consolidations. The patient received Decadron, Levaquin, DuoNeb, and magnesium in the emergency room and got admitted to the hospital for further management of her problem. She had chest pain at the time of admission, which was subsequently ruled out with 3 troponin levels as coronary syndrome. Apparently, the patient was seen by Dr. Ortiz for Pulmonary evaluation and he recommended to switch her to p.o. prednisone and continue frequent nebulization. She was treated with Xanax for her psychiatric problems along with respiratory treatments for her acute exacerbation of chronic obstructive pulmonary disease. She improved very gradually. Finally, she was seen by Dr. Garladn, her primary sample distributor, who recommended today to discharge her home and she will be on Levaquin 500 mg once a day for additional 6 days and prednisone 40 mg once a day for 7 days, then 20 mg once a day. Also she will continue vitamin 1 a day and DuoNeb four times a day p.r.n. along with citalopram 20 mg once a day, magnesium 400 mg once a day, and multivitamin once a day. She will follow up with Dr. Garland in 2 weeks and she will continue her O2 at home. Job ID: [id number]
== END 2018-06-04 18:17 | disposition home or self-care (01) | DRG 190 ==
LOC: ERS 11:59 → 2SW 13:44 → OBSVTOIN 05-28 15:31 → T4-A 05-28 17:28
PROVIDERS: ADMIT Internal Medicine; ATTEND Internal Medicine
DX: J43.9 Emphysema, unspecified (principal); J96.20 Acute and chronic respiratory failure, unspecified whether with hypoxia or hypercapnia; C34.31 Malignant neoplasm of lower lobe, right bronchus or lung; Z68.1 Body mass index [BMI] 19.9 or less, adult; R64 Cachexia; E44.0 Moderate protein-calorie malnutrition; Z66 Do not resuscitate; F41.9 Anxiety disorder, unspecified; F42.9 Obsessive-compulsive disorder, unspecified; E87.5 Hyperkalemia; Z99.81 Dependence on supplemental oxygen; Z87.891 Personal history of nicotine dependence; Z85.3 Personal history of malignant neoplasm of breast; Z79.51 Long term (current) use of inhaled steroids; Z79.899 Other long term (current) drug therapy
CPT/HCPCS: 36415; 71046; 80048; 80053; 80061; 81003; 82306; 82550; 82805; 83036; 83690; 83880; 84436; 84443; 84484; 85025; 85379; 87040; 90471; 90670; 93005; 94640; 94760; 96365; 96367; 96375; G0009; J1100; J1956; J2920; J3475; J7050; J7611; J7620

== ENCOUNTER 2020-01-24 14:09 | Inpatient (IN) | payer MEDICARE, BC ==
[~2020-01-24 14:09] MED LIST: Iopamidol-370 76% 500 ML 1 ML ONE
[2020-01-24 14:49] LABS: #Lymphocytes 1.6 thou/uL (1.20-3.40); #Monocytes 0.4 thou/uL (0.11-0.59); %Basophils 0.3 % (0.0-1.0); %Eosinophils 0.3 % (0.0-10.0); %Lymphocytes 14.2 % (21.0-51.0); %Monocytes 3.8 % (0.0-10.0); %Neutrophils 81.4 % (42.0-75.0); Hemoglobin 15.4 g/dL (12.0-16.0); Mean Corpuscular Hemoglobin 29.4 pg (27.0-31.0); Mean Corpuscular Volume 91.8 fL (78.0-98.0); Mean Platelet Volume 6.3 fL (7.4-10.4); Platelet Count 364 thou/uL (130-400); RBC Distribution Width 11.6 % (11.5-14.5); Red Blood Cell (RBC) Count 5.23 mill/uL (4.20-5.40); White Blood Cell (WBC) Count 11.1 thou/uL (4.8-10.8)
[2020-01-24] MEDS ORDERED: Albuterol 200 PUFF (6.7GM INHALER) ONE (14:52)
[2020-01-24] MEDS ORDERED: cefTRIAXone\\ROCEPHIN 2 GM VIAL ONE (14:55)
[2020-01-24] MEDS ORDERED: Magnesium 2 GM/50 ML BAG (IN WATER) ONE (14:55)
[2020-01-24] MEDS ORDERED: methylPREDNISolone Sod Succ/PF 125 MG/2 ML VIAL ONE (14:55)
[2020-01-24] MEDS ORDERED: Azithromycin 500 MG VIAL ONE (14:55)
[2020-01-24 15:00] LABS: Bilirubin Negative (Negative); Blood, Urine 1+ (Negative); Clarity Turbid (Clear); Glucose, Urine (Dipstick) 50 mg/dL (Negative); Ketone, Urine Negative (Negative); Leukocyte 500 Leu/uL (Negative); Nitrite Negative (Negative); Protein, Urine (Dipstick) 20 mg/dL (Neg-Trace); Specific Gravity, Urine 1.018 (1.002-1.036); Squamous Epithelial None Seen HPF (0-3); Transitional Epithelial 0-3 HPF (None Seen); Urobilinogen Normal mg/dL (Less than 2); WBC/HPF 21-50 HPF (0-3); pH, Urine 7.5 (5.0-9.0)
[2020-01-24 15:02] LABS: Bacteria/HPF 1+ HPF (None Seen)
[2020-01-24 15:05] LABS: Actual Bicarbonate (HCO3a) 29.1 mEq/L (22-28); Analyzer IN Cardio ER; Base Excess (BEa) 3.8 mEq/L (-2.0 to +3.0); CO2 Tension 46.6 mmHg (35.0-45.0); Calcium, Ionized (arterial) 1.21 mmol/L (1.12-1.30); Hemoglobin (Hb) 14.8 g/dL (12.0-16.0); Potassium - ABG Lab 4.31 mmol/L (3.70-5.30); pH, Arterial 7.41 (7.35-7.45)
[2020-01-24 15:13] LABS: Puncture Site LRA
[2020-01-24 15:13] LABS: ALT (SGPT) 12 U/L (8-55); AST (SGOT) 15 U/L (5-34); Albumin 4.2 g/dL (3.4-4.8); Alkaline Phosphatase 88 U/L (40-110); Anion Gap 16 mmol/L (10-20); BUN (Urea Nitrogen) 12 mg/dL (9.8-20.1); Bilirubin, Total 0.7 mg/dL (0.2-1.2); Calc. Creatinine Clearance 0 mL/min (70-130); Calcium 10.1 mg/dL (7.8-10.44); Carbon Dioxide 33 mmol/L (23-31); Chloride 96 mmol/L (98-107); Estimated GFR-MDRD 70; Globulin 3.1 g/dL (2.4-3.5); Glucose 136 mg/dL (80-115); Potassium 4.3 mmol/L (3.5-5.1); Protein, Total 7.3 g/dL (6.0-8.3); Sodium 141 mmol/L (136-145)
--- NOTE | 2020-01-24 15:21 | RAD ---
PORTABLE CHEST: 01/24/20 INDICATIONS: Shortness of breath. COPD and lung cancer. COMPARISON: Comparison made to recent chest CT 10/30/2019. Lungs show hyperexpansion. Emphysematous changes are again noted with bullous changes in the upper brock ngs more pronounced in the right upper lung. The findings appear stable from the recent CT. No eviden ce of acute infiltrate. Rib deformity in the right lateral chest wall with focal area of calcification along the pleural surf kiley is a stable finding. Parenchymal stranding at this level is also stable. Heart and mediastinum un remarkable. IMPRESSION: Changes of COPD which appears stable from CT of 10/30/19. POS: AH
[2020-01-24 16:40] LABS: SARS-CoV-2 NAA Rapid Test Not Detected (NotDetected)
--- NOTE | 2020-01-24 17:09 | CT ---
Head CT without contrast: 01/24/2020 COMPARISON: None HISTORY: Altered mental status TECHNIQUE: Axial CT imaging at 5 mm intervals from vertex through skull base without contrast FINDINGS: The visualized paranasal sinuses and mastoid air cells are well aerated. No displaced sylvia rial fracture. No intracranial hemorrhage, midline shift, mass effect, or ventricular enlargement. IMPRESSION: No intracranial hemorrhage or displaced calvarial fracture.
--- NOTE | 2020-01-24 17:58 | CT ---
CT of the abdomen and pelvis: 01/24/2020 COMPARISON: None HISTORY: COPD and lung cancer, altered mental status TECHNIQUE: Axial CT imaging at 5 mm intervals from lung bases through pubic symphysis with intravenou s contrast. Coronal and sagittal reformatted imaging obtained. FINDINGS: There are emphysematous changes within partially imaged lung bases. No free intraperitoneal air or fluid. The liver, gallbladder, and spleen demonstrate no acute findings. The pancreas, adrenal glands, and kidneys demonstrate no acute findings. Evaluation of the bowel is limited without oral contrast media. There is diverticulosis of the sigmoid colon without evidence for diverticulitis. The appendix is not discretely visualized. No right lower quadrant inflammatory change is appreciated . There is extensive multifocal atherosclerotic calcification of the abdominal aorta and its branches w ith severe atherosclerotic disease involving the arterial structures of the pelvis and the distal abdominal aorta. Review of the osseous structures demonstrates no worrisome lytic or blastic bone lesions. IMPRESSION: Extensive atherosclerotic disease. No free intraperitoneal air or evidence of bowel obstr uction.
[2020-01-24 17:59] LABS: Lactic Acid 1.2 mmol/L (0.5-2.2)
--- NOTE | 2020-01-24 18:50 | CT ---
CT angiogram chest: 01/24/2020 COMPARISON: Chest CT 10/30/2019 HISTORY: Altered mental status, COPD, shortness of breath TECHNIQUE: Axial CT imaging at 2.5 mm intervals through the chest with IV contrast using CT angiogram protocol. Coronal and sagittal 3-D reformatted imaging obtained. FINDINGS: There are severe emphysematous changes noted bilaterally. There is no axillary, mediastinal, or hilar lymphadenopathy. Mild distal esophageal wall thickening is noted. There is adequate opacification of the pulmonary arterial vasculature with no discrete filling defect seen to suggest the presence of acute pulmonary arterial embolism. There are coarse increased linear interstitial densities noted within the anteromedial aspect of the left upper lobe superiorly, unchanged when compared to the prior examination. Bilateral fat-containing Bochdalek hernias are present. Old lateral right-sided rib fractures are noted. There is prominent calcification adjacent to these o ld lateral right-sided rib fractures suggesting stable heterotopic bone. There is adjacent patchy increased linear density with a masslike configuration on the coronal imaging measuring up to 1.2 cm in craniocaudal dimension, 1.5 cm in transverse dimension, and approximately 3.1 cm in AP dimension. The configuration of this parenchymal opacity deep to the old lateral right-sided rib frac tures was not seen on 05/27/2018 and has increased since conspicuity when compared to the 11/25/2018 exam. It is stable when compared to the 10/30/2019 exam. There is scattered atherosclerotic calcification of the aortic arch and thoracic aorta. No acute osse ous abnormality is noted. IMPRESSION: No evidence for pulmonary arterial embolism Severe emphysematous change. Nonspecific pulmonary parenchymal density deep to an area of old right-sided rib fractures which has increased in conspicuity when compared to prior imaging. This has steadily increased since the 05/27/2018. It is a nonspecific finding and thus, a follow-up PET scan is advised to exclude malignanc y. CODE T
[2020-01-24 22:44] LABS: Troponin I Less than 0.010 ng/mL (< 0.028)
[2020-01-24 23:50] VITALS: BMI 19.1
[2020-01-25] MEDS ORDERED: Calcium Carbonate 500 MG ChewTAB PO PRN (00:24)
[2020-01-25] MEDS ORDERED: Acetaminophen 650 MG Suppository PR PRN (00:24)
[2020-01-25] MEDS ORDERED: Ondansetron PF 4 MG/2 ML Vial IVP PRN (00:24)
[2020-01-25] MEDS ORDERED: Guaifenesin DM 100-10/5 ML UDCUP PO PRN (00:24)
[2020-01-25] MEDS ORDERED: Ondansetron ODT 4 MG TAB PO PRN (00:24)
--- NOTE | 2020-01-25 00:36 | PDOC.HHP ---
Hospitalist HPI - History of Present Illness confusion History of Present Illness: Case of an 69y/o female with pmhx of COPD and lung cancer on home o2 that comes to hospital due to altered mental status. apparently patient was on he usual state of health until 2 days whe she became more altered than usual. states that she has been progressively confused for the last 2 days. he denies any falls or recent head injury. Patient reports that she has a little bit of shortness of breath as compared to baseline. She denies any fever, nausea, vomiting, chest pain, or abdominal pain. at Ed patient was evaluated and diagnosed with sepsis secondary to due to uti also it was noted that patient had decreased o2 sats for which 02 supplementation kept increasing, patient ending up in bipap to maintain adequate saturation. Hospitalist ROS - Review of Systems All other systems reviewed; all pertinent +/- noted in HPI/Subj Hospitalist History - Past Surgical History Other Surgical History: lung biopsy - Family History Family History: reports: cancer - Social History Smoking Status: Former smoker Alcohol: reports: None Drugs: reports: none - Exam General Appearance: NAD, awake alert Eye: PERRL, anicteric sclera ENT: normocephalic atraumatic, no oropharyngeal lesions Neck: supple, symmetric, no JVD, no thyromegaly Heart: no murmur, no gallops, no rubs Heart - other findings: tachycardic Respiratory - other findings: decreased lung sounds Gastrointestinal: soft, non-tender, non-distended, normal bowel sounds Extremities: no cyanosis, no clubbing, no edema Skin: normal turgor, no lesions, no rashes Neurological: cranial nerve grossly intact, normal sensation to touch, no weakness Musculoskeletal: normal tone, normal strength, no muscle wasting Psychiatric: oriented to person Hospitalist Results - Labs Result Diagrams: 01/24/20 14:20 01/24/20 14:20 Lab results: WBC 11.1 thou/uL (4.8-10.8) H 01/24/20 14:20 Hgb 15.4 g/dL (12.0-16.0) 01/24/20 14:20 Hct 48.0 % (36.0-47.0) H 01/24/20 14:20 MCV 91.8 fL (78.0-98.0) 01/24/20 14:20 Plt Count 364 thou/uL (130-400) 01/24/20 14:20 Neutrophils % 81.4 % (42.0-75.0) H 01/24/20 14:20 ABG pH 7.41 (7.35-7.45) 01/24/20 14:48 ABG pCO2 46.6 mmHg (35.0-45.0) H 01/24/20 14:48 ABG pO2 158.0 mmHg (> 80.0) H 01/24/20 14:48 Sodium 141 mmol/L (136-145) 01/24/20 14:20 Potassium 4.3 mmol/L (3.5-5.1) 01/24/20 14:20 Chloride 96 mmol/L (98-107) L 01/24/20 14:20 Carbon Dioxide 33 mmol/L (23-31) H 01/24/20 14:20 BUN 12 mg/dL (9.8-20.1) 01/24/20 14:20 Creatinine 0.82 mg/dL (0.6-1.1) 01/24/20 14:20 Glucose 136 mg/dL (80-115) H 01/24/20 14:20 Lactic Acid 1.2 mmol/L (0.5-2.2) 01/24/20 17:24 Calcium 10.1 mg/dL (7.8-10.44) 01/24/20 14:20 Total Bilirubin 0.7 mg/dL (0.2-1.2) 01/24/20 14:20 AST 15 U/L (5-34) 01/24/20 14:20 ALT 12 U/L (8-55) 01/24/20 14:20 Alkaline Phosphatase 88 U/L (40-110) 01/24/20 14:20 Troponin I Less than 0.010 ng/mL (< 0.028) 01/24/20 22:12 B-Natriuretic Peptide 33.1 pg/mL (0-100) 01/24/20 14:20 Serum Total Protein 7.3 g/dL (6.0-8.3) 01/24/20 14:20 Albumin 4.2 g/dL (3.4-4.8) 01/24/20 14:20 Urine Ketones Negative mg/dL (Negative) 01/24/20 14:37 Urine Blood 1+ (Negative) A 01/24/20 14:37 Urine Nitrite Negative (Negative) 01/24/20 14:37 Ur Leukocyte Esterase 500 Moses/uL (Negative) A 01/24/20 14:37 Urine RBC 4-6 HPF (0-3) A 01/24/20 14:37 Urine WBC 21-50 HPF (0-3) A 01/24/20 14:37 Ur Squamous Epith Cells None Seen HPF (0-3) 01/24/20 14:37 Urine Bacteria 1+ HPF (None Seen) A 01/24/20 14:37 Hospitalist H&P A/P - Problem (1) Acute and chronic respiratory failure Code(s): J96.20 - ACUTE AND CHR RESP FAILURE, UNSP W HYPOXIA OR HYPERCAPNIA Status: Acute (2) UTI (urinary tract infection) Status: Acute (3) COPD exacerbation Code(s): J44.1 - CHRONIC OBSTRUCTIVE PULMONARY DISEASE W (ACUTE) EXACERBATION Status: Acute (4) Sepsis Code(s): A41.9 - SEPSIS, UNSPECIFIED ORGANISM Status: Acute (5) Lung cancer Code(s): C34.90 - MALIGNANT NEOPLASM OF UNSP PART OF UNSP BRONCHUS OR LUNG Status: Acute (6) Altered mental state Code(s): R41.82 - ALTERED MENTAL STATUS, UNSPECIFIED Status: Acute - Plan Plan: 69y/o female with the stated pmhx who present with resp failure and sepsis secondary to uti and copd exacerbation respiratory failure on bipap / copd exacerbation - on bipap - pulmonology consulted - on rocephin + azithromycin - iv steroids - cx + cta negative - duo nebs - covid 19 negative sepsis secondary to uti - tachycardic + tachypnic + increasing confusion +elevated wbc with u/a consistenet w uti - f/u urine culture - on rocephin - ivfs - negative head ct altered mental state - head ct negative - no focal weakness - likely secondary to resp failure + sepsis
[2020-01-25] MEDS: Sodium Chloride 0.9% 1,000 ML IV SCH ×2 (01:00→22:30)
[2020-01-25 01:44] LABS: Troponin I 0.022 ng/mL (< 0.028)
[2020-01-25] MEDS: methylPREDNISolone Sod Succ 40 MG VIAL IVP SCH ×3 (06:15→17:07)
--- NOTE | 2020-01-25 11:32 | CON ---
DATE OF CONSULTATION: HISTORY OF PRESENT ILLNESS: A 69-year-old cachectic female who sees apparently Dr. Garland in the office, unknown primary care physician. is at the bedside who said she was having some progressive mental status manager change the last several days. Brought to the ER and admitted with COPD exacerbation. Extensive history is outlined. PAST MEDICAL HISTORY: COPD; ongoing tobacco abuse; lung cancer 3 years ago, status post radiation; history major depression. PAST SURGICAL HISTORY: Lung biopsy, right lower lobe. SOCIAL HISTORY: Alcohol, none. Tobacco, as noted. ALLERGIES: NONE. HOME MEDICATIONS: Include, 1. Vitamins. 2. Magnesium. 3. Albuterol inhaler. 4. Prednisone. 5. Atrovent. REVIEW OF SYSTEMS: Otherwise 10-point negative. PHYSICAL EXAMINATION: GENERAL: She is awake, alert, and responsive. VITAL SIGNS: Saturations 100% on 2 L, I decreased it to 1 liter; blood pressure 120/80; pulse rate of . CHEST: No wheezing. No crackles. CARDIAC: Normal S1 and S2. No gallops. ABDOMEN: Soft. No masses. LABORATORY DATA: The pO2 is 158, pCO2 is 43, pH 7.41. Lytes are normal. Additional lab, tom test was negative. White count 11,000. Chest x-ray, no acute infiltrates. CT, no PE. Renal function normal. ASSESSMENT: Chronic obstructive pulmonary disease exacerbation and bronchitis. PLAN: Switch over to oral antibiotics and oral prednisone tomorrow. I have added low-dose Dulera to her present regime. wants Neurology to see the . We will comply. Consultation note, 70 minutes, 50% direct patient care. Job ID: [id number]
[2020-01-25] MEDS: Enoxaparin Sodium 40 MG/0.4 ML SYRINGE SC SCH (12:00)
--- NOTE | 2020-01-25 14:11 | CON ---
NEUROLOGY CONSULTATION DATE OF CONSULTATION: 01/25/2020 REASON FOR CONSULTATION: Altered mental status. HISTORY OF PRESENT ILLNESS: Ms. Denton is a 69-year-old female with medical history significant for COPD; lung cancer, on home oxygen; presented with altered mental status. Per , she was in her usual state of health 3 days ago when she became extremely lethargic and confused and seems to be repeating herself. The denies any falls or recent injury. Currently, she has improved, but not back to her baseline. Per the patient, she was also short of breath. The patient denies nausea, vomiting, headache, chest pain, abdominal pain, focal weakness, focal paresthesias, vertigo, dizziness, double vision, loss of vision, recent illness, or recent exposure to COVID. REVIEW OF SYSTEMS: All systems reviewed and were negative except the pertinent positives and negatives mentioned in the HPI. PAST SURGICAL HISTORY: Lung biopsy. FAMILY HISTORY: Cancer. SOCIAL HISTORY: The patient is , lives with her . 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 She is a former smoker. ALLERGIES: NKDA PHYSICAL EXAMINATION: VITAL SIGNS: Blood pressure 114/60, pulse 80, respiratory rate 18. General Appearance: NAD, awake alert Eye: PERRL, anicteric sclera ENT: normocephalic atraumatic, no oropharyngeal lesions Neck: supple, symmetric, no JVD, no thyromegaly Heart: no murmur, no gallops, no rubs Heart - other findings: tachycardic Respiratory - other findings: decreased lung sounds Gastrointestinal: soft, non-tender, non-distended, normal bowel sounds Extremities: no cyanosis, no clubbing, no edema Skin: normal turgor, no lesions, no rashes Neurological: Mental status, the patient is alert and oriented to person and place. Speech is clear. Motor, muscle tone and bulk are normal. Moving all 4 extremities equally and symmetrically. Sensory intact. Cerebellar, finger-nose testing intact. Cranial nerves 2 through 12 intact. Gait deferred due to the patient's safety reasons. DATA REVIEWED: WBC 11.1 thou/uL (4.8-10.8) H 01/24/20 14:20 Hgb 15.4 g/dL (12.0-16.0) 01/24/20 14:20 Hct 48.0 % (36.0-47.0) H 01/24/20 14:20 MCV 91.8 fL (78.0-98.0) 01/24/20 14:20 Plt Count 364 thou/uL (130-400) 01/24/20 14:20 Neutrophils % 81.4 % (42.0-75.0) H 01/24/20 14:20 ABG pH 7.41 (7.35-7.45) 01/24/20 14:48 ABG pCO2 46.6 mmHg (35.0-45.0) H 01/24/20 14:48 ABG pO2 158.0 mmHg (> 80.0) H 01/24/20 14:48 Sodium 141 mmol/L (136-145) 01/24/20 14:20 Potassium 4.3 mmol/L (3.5-5.1) 01/24/20 14:20 Chloride 96 mmol/L (98-107) L 01/24/20 14:20 Carbon Dioxide 33 mmol/L (23-31) H 01/24/20 14:20 BUN 12 mg/dL (9.8-20.1) 01/24/20 14:20 Creatinine 0.82 mg/dL (0.6-1.1) 01/24/20 14:20 Glucose 136 mg/dL (80-115) H 01/24/20 14:20 Lactic Acid 1.2 mmol/L (0.5-2.2) 01/24/20 17:24 Calcium 10.1 mg/dL (7.8-10.44) 01/24/20 14:20 Total Bilirubin 0.7 mg/dL (0.2-1.2) 01/24/20 14:20 AST 15 U/L (5-34) 01/24/20 14:20 ALT 12 U/L (8-55) 01/24/20 14:20 Alkaline Phosphatase 88 U/L (40-110) 01/24/20 14:20 Troponin I Less than 0.010 ng/mL (< 0.028) 01/24/20 22:12 B-Natriuretic Peptide 33.1 pg/mL (0-100) 01/24/20 14:20 Serum Total Protein 7.3 g/dL (6.0-8.3) 01/24/20 14:20 Albumin 4.2 g/dL (3.4-4.8) 01/24/20 14:20 Urine Ketones Negative mg/dL (Negative) 01/24/20 14:37 Urine Blood 1+ (Negative) A 01/24/20 14:37 Urine Nitrite Negative (Negative) 01/24/20 14:37 Ur Leukocyte Esterase 500 Moses/uL (Negative) A 01/24/20 14:37 Urine RBC 4-6 HPF (0-3) A 01/24/20 14:37 Urine WBC 21-50 HPF (0-3) A 01/24/20 14:37 Ur Squamous Epith Cells None Seen HPF (0-3) 01/24/20 14:37 Urine Bacteria 1+ HPF (None Seen) A 01/24/20 14:37 ASSESSMENT AND PLAN: (1) Acute and chronic respiratory failure Code(s): J96.20 - ACUTE AND CHR RESP FAILURE, UNSP W HYPOXIA OR HYPERCAPNIA Status: Acute (2) UTI (urinary tract infection) Status: Acute (3) COPD exacerbation Code(s): J44.1 - CHRONIC OBSTRUCTIVE PULMONARY DISEASE W (ACUTE) EXACERBATION Status: Acute (4) Sepsis Code(s): A41.9 - SEPSIS, UNSPECIFIED ORGANISM Status: Acute (5) Lung cancer Code(s): C34.90 - MALIGNANT NEOPLASM OF UNSP PART OF UNSP BRONCHUS OR LUNG Status: Acute (6) Altered mental state Code(s): R41.82 - ALTERED MENTAL STATUS, UNSPECIFIED Status: Acute Ms. Isabella Denton is a 69-year-old female who presented with altered mental status that seems to be multifactorial secondary to acute respiratory failure, urinary tract infection, chronic obstructive pulmonary disease exacerbation, sepsis, however, intracranial process could not be completely ruled out. Consider MRI of the brain to rule out acute intracranial process. EEG to rule out underlying cortical irritability. Neuro checks every 4 hours. Continue home medications. Continue medical management per primary team, PT/OT/Speech. We will continue to follow. Plan discussed in detail with the patient and the at bedside. Thank you for the consult. Job ID: [id number] MTDD
[2020-01-25] MEDS: Azithromycin 500 MG in Sodium Chloride 0.9% 250 ML 250 ML IVPB SCH (16:00)
[2020-01-25] MEDS: cefTRIAXone\\ROCEPHIN 1 GM in Sodium Chloride 0.9% 100 ML IVPB SCH (16:01)
--- NOTE | 2020-01-25 16:56 | PDOC.HOSPP ---
- Subjective Encounter Date: 01/25/20 Encounter Time: 16:54 Subjective: This is a 69-year-old woman who was admitted to the hospital with confusion and worsening shortness of breath. She does have a history of COPD and chronic respiratory failure on home O2. The brought him in to the hospital because of confusion. She required BiPAP initially on admission but this has since been deescalated and she is now on O2 via nasal cannula. She does have evidence of a urinary tract infection which is likely contributing to the altered mental status. I saw and evaluated her at the bedside and her was present when I visited. She is on O2 at 3 L nasal cannula and she seems pretty comfortable. Neurology evaluation was requested. I will defer to them about further recommendations. I will continue IV antibiotics. I will follow up on the urinary culture. - Objective Vital Signs & Weight: Vital Signs (12 hours) Temp Pulse Resp Pulse Ox 01/25/20 15:25 99.2 F 01/25/20 13:06 88 25 H 100 01/25/20 11:28 98.4 F 01/25/20 08:00 100 01/25/20 07:49 86 22 H 100 01/25/20 07:48 87 26 H 95 01/25/20 07:35 96.8 F L Weight Weight 108 lb 3.2 oz Most Recent Monitor Data Heart Rate from ECG 99 NIBP 132/67 NIBP BP-Mean 88 Respiration from ECG 21 SpO2 99 I&O: 01/24/20 01/25/20 01/26/20 06:59 06:59 06:59 Intake Total 400 Output Total 250 Balance 150 Result Diagrams: 01/24/20 14:20 01/24/20 14:20 Radiology Reviewed by me: Yes EKG Reviewed by me: Yes Hospitalist ROS - Review of Systems Constitutional: reports: weakness, malaise Respiratory: reports: cough, dry, shortness of breath, SOB with excertion Neurological: reports: weakness, confusion - Medication Medications: Active Medications Generic Name Dose Route Start Last Admin Trade Name Freq PRN Reason Stop Dose Admin Albuterol/Ipratropium 3 ml 01/25/20 01:00 01/25/20 13:06 Ipratropium/Albuterol Sulfate 3 Ml Neb NEB 3 ml [id number] BANDAR Administration Enoxaparin Sodium 40 mg 01/25/20 09:00 01/25/20 12:00 Enoxaparin Sodium 40 Mg/0.4 Ml Syringe SC 40 mg 0900 BANDAR Administration Azithromycin 500 mg/ Sodium 250 mls @ 250 mls/hr 01/25/20 15:00 01/25/20 16:00 Chloride IVPB 250 mls Q24HR BANDAR Administration Ceftriaxone Sodium 1 gm/ 100 mls @ 200 mls/hr 01/25/20 16:00 01/25/20 16:01 Sodium Chloride IVPB 100 mls Q24HR BANDAR Administration Sodium Chloride 1,000 mls @ 50 mls/hr 01/25/20 00:30 01/25/20 01:00 Normal Saline 0.9% IV 1,000 mls .Q20H BANDAR Administration Methylprednisolone Sodium Succinate 40 mg 01/25/20 06:00 01/25/20 12:00 Methylprednisolone Sod Succ 40 Mg Vial IVP 40 mg Q6HR BANDAR Administration Sodium Chloride 10 ml 01/24/20 23:30 01/25/20 01:00 Flush - Normal Saline 10 Ml Syringe IVF 10 ml PRN PRN Administration Saline Flush - Exam General Appearance: awake alert, ill appearing Eye: PERRL, anicteric sclera ENT: normocephalic atraumatic, no oropharyngeal lesions Neck: supple, symmetric, no JVD, no thyromegaly, no lymphadenopathy Heart: RRR, no murmur, no gallops, no rubs, normal peripheral pulses Respiratory: CTAB, no wheezes, no rales, no ronchi, normal chest expansion Gastrointestinal: soft, non-tender, non-distended, normal bowel sounds, no palpable masses Neurological: cranial nerve grossly intact, normal sensation to touch Musculoskeletal: normal tone, normal strength, no muscle wasting, generalized weakness Psychiatric: normal affect, normal behavior, A&O x 3 Hosp A/P (1) Acute and chronic respiratory failure Code(s): J96.20 - ACUTE AND CHR RESP FAILURE, UNSP W HYPOXIA OR HYPERCAPNIA Status: Acute Qualifiers: Respiratory failure complication: hypercapnia Qualified Code(s): J96.22 - Acute and chronic respiratory failure with hypercapnia Plan: Secondary to COPD exacerbation. Continue O2 supplementation as with doing right now. (2) COPD exacerbation Code(s): J44.1 - CHRONIC OBSTRUCTIVE PULMONARY DISEASE W (ACUTE) EXACERBATION Status: Acute Plan: Continue bronchodilators. Appreciate pulmonary ongoing evaluation. (3) Lung cancer Code(s): C34.90 - MALIGNANT NEOPLASM OF UNSP PART OF UNSP BRONCHUS OR LUNG Status: Chronic Plan: This is chronic. Outpatient follow-up with oncologist. (4) UTI (urinary tract infection) Status: Acute Qualifiers: Urinary tract infection type: acute cystitis Hematuria presence: without he maturia Qualified Code(s): N30.00 - Acute cystitis without hematuria Plan: Continue antibiotic and follow-up the urine culture results. - Plan old records reviewed/req, plan discussed w/ family, continue antibiotics, PT/OT, respiratory therapy, incentive spirometry
[2020-01-25] MEDS: Mometasone 200 MCG/Formoterol 5 MCG 120 PUFF INHALER INH SCH (19:35)
[2020-01-25] MEDS ORDERED: FLU VACC QS2020-21(65YR UP)/PF 240 MCG/0.7 ML SYRINGE IM ONE (21:00)
[2020-01-26] MEDS: methylPREDNISolone Sod Succ 40 MG VIAL IVP SCH ×5 (00:15→23:36)
[2020-01-26] MEDS: Mometasone 200 MCG/Formoterol 5 MCG 120 PUFF INHALER INH SCH ×2 (08:24→18:40)
[2020-01-26] MEDS: Enoxaparin Sodium 40 MG/0.4 ML SYRINGE SC SCH (08:41)
--- NOTE | 2020-01-26 12:03 | PDOC.EEG ---
Neurology EEG Report - Report Report: This EEG was performed using 24 channel [employer] video digital EEG machine with 24 disc electrodes. This was an extended 2-hour 7 minutes of inpatient video EEG recording. Digital analysis of the EEG was done for Dennys and seizure detection which revealed no abnormalities Background: The posterior background rhythm is 8-8.5 hz. Minimal reactivity seen with eye opening and closure. Hyperventilation: Not performed. Photic stimulation. Bioccipital symmetric response seen with photic stimulation. EEG diagnosis: Rare irregular theta activity seen during the recording. Nonsustained posterior background rhythm. Clinical interpretation: This EEG is consistent with mild generalized nonspecific cerebral dysfunction.
--- NOTE | 2020-01-26 12:24 | PRG ---
DATE OF SERVICE: 01/26/2020 SUBJECTIVE: Ms. Denton is somewhat confused. She is off the BiPAP this morning. OBJECTIVE: VITAL SIGNS: Temperature 98.0, , blood pressure 132/68, and O2 saturation in the 90s. HEENT: Unremarkable. NECK: No JVD. LUNGS: Rhonchi bilaterally. CARDIOVASCULAR: S1 and S2. Regular. ABDOMEN: Soft. EXTREMITIES: No edema. DIAGNOSTIC STUDIES: EEG showed some nonspecific cerebral slowing. No labs were obtained today. ASSESSMENT: Chronic obstructive pulmonary disease with exacerbation. PLAN: 1. Continue nebulization treatments, make them every 4 hours. 2. Continue corticosteroids, but reduce the dose to 20 mg every 4 hours. 3. Continue BiPAP intermittently as needed. 4. Withhold Ativan as much as possible. Job ID: [id number]
[2020-01-26] MEDS: Azithromycin 500 MG in Sodium Chloride 0.9% 250 ML 250 ML IVPB SCH (14:27)
--- NOTE | 2020-01-26 15:51 | PDOC.HOSPP ---
- Subjective Encounter Date: 01/26/20 Encounter Time: 15:49 Subjective: Ms. Detnon was seen and evaluated. 69-year-old woman admitted to the hospital for altered mental status found to be related to UTI. Her urine culture has just returned negative. She does have a history of COPD and chronic respiratory failure. She appears to be at her baseline. We appreciate neurologist ongoing evaluation. We will follow up on the EEG and MRI. - Objective Vital Signs & Weight: Vital Signs (12 hours) Temp Pulse Resp Pulse Ox 01/26/20 15:28 98.6 F 01/26/20 14:55 94 24 H 97 01/26/20 12:05 117 H 28 H 89 L 01/26/20 12:00 100 01/26/20 11:10 98.0 F 01/26/20 08:00 100 01/26/20 07:21 97.4 F L 01/26/20 04:00 98.6 F Weight Weight 108 lb 3.2 oz Most Recent Monitor Data Heart Rate from ECG 97 NIBP 152/79 NIBP BP-Mean 103 Respiration from ECG 25 SpO2 100 I&O: 01/25/20 01/26/20 01/27/20 06:59 06:59 06:59 Intake Total 400 2417 450 Output Total 250 550 Balance 150 1867 450 Result Diagrams: 01/24/20 14:20 01/24/20 14:20 Radiology Reviewed by me: Yes EKG Reviewed by me: Yes Hospitalist ROS - Review of Systems ROS unobtainable: due to mental status Constitutional: reports: weakness, malaise Respiratory: reports: shortness of breath Neurological: reports: weakness, confusion - Medication Medications: Active Medications Generic Name Dose Route Start Last Admin Trade Name Freq PRN Reason Stop Dose Admin Albuterol/Ipratropium 3 ml 01/26/20 14:30 01/26/20 14:55 Ipratropium/Albuterol Sulfate 3 Ml Neb NEB 3 ml [id number] BANDAR Administration Enoxaparin Sodium 40 mg 01/25/20 09:00 01/26/20 08:41 Enoxaparin Sodium 40 Mg/0.4 Ml Syringe SC 40 mg 0900 BANDAR Administration Azithromycin 500 mg/ Sodium 250 mls @ 250 mls/hr 01/25/20 15:00 01/26/20 14:27 Chloride IVPB 250 mls Q24HR BANDAR Administration Ceftriaxone Sodium 1 gm/ 100 mls @ 200 mls/hr 01/25/20 16:00 01/25/20 16:01 Sodium Chloride IVPB 100 mls Q24HR BANDAR Administration Mometasone Furoate/Formoterol Fumar 2 puff 01/25/20 18:30 01/26/20 08:24 Mometasone 200 Mcg/Formoterol 5 Mcg 120 Puff Inhaler INH Not Given BID-RT BANDAR Sodium Chloride 10 ml 01/24/20 23:30 01/25/20 01:00 Flush - Normal Saline 10 Ml Syringe IVF 10 ml PRN PRN Administration Saline Flush - Exam General Appearance: awake alert, ill appearing ENT: normocephalic atraumatic, no oropharyngeal lesions, moist mucosa Neck: supple, symmetric, no lymphadenopathy Heart: RRR, no murmur, no gallops, no rubs, normal peripheral pulses Respiratory: CTAB, no wheezes, no rales, no ronchi, normal chest expansion Gastrointestinal: soft, non-tender, non-distended, normal bowel sounds, no palpable masses Neurological: cranial nerve grossly intact, normal sensation to touch Musculoskeletal: normal tone, normal strength, generalized weakness Psychiatric: normal affect, normal behavior, A&O x 3 Hosp A/P (1) Acute and chronic respiratory failure Code(s): J96.20 - ACUTE AND CHR RESP FAILURE, UNSP W HYPOXIA OR HYPERCAPNIA Status: Acute Qualifiers: Respiratory failure complication: hypercapnia Qualified Code(s): J96.22 - Acute and chronic respiratory failure with hypercapnia (2) COPD exacerbation Code(s): J44.1 - CHRONIC OBSTRUCTIVE PULMONARY DISEASE W (ACUTE) EXACERBATION Status: Acute (3) Lung cancer Code(s): C34.90 - MALIGNANT NEOPLASM OF UNSP PART OF UNSP BRONCHUS OR LUNG Status: Chronic (4) UTI (urinary tract infection) Status: Acute Qualifiers: Urinary tract infection type: acute cystitis Hematuria presence: without hematuria Qualified Code(s): N30.00 - Acute cystitis without hematuria - Plan continue antibiotics, PT/OT, DVT proph w/lovenox #1. Acute on chronic respiratory failure with hypoxia. Likely from COPD exacerbation. Continue O2 supplementation. 2. COPD exacerbation. Continue bronchodilators. 3. UTI. Urine cultures are actually negative. I will continue empiric antibiotics for now. 4. Acute encephalopathy. Likely combination of #3 and #1 above. Continue current care as above. EEG was reviewed and this did not show any signs of seizure.
--- NOTE | 2020-01-26 16:56 | PDOC.NEUPN ---
- Subjective Encounter Date: 01/26/20 Subjective: Patient is waske and alert. Had an episode of respiratory distress so unable to complete MRI Brain. - Objective Vital Signs & Weight: Vital Signs (12 hours) Temp Pulse Resp Pulse Ox 01/26/20 15:28 98.6 F 01/26/20 14:55 94 24 H 97 01/26/20 12:05 117 H 28 H 89 L 01/26/20 12:00 100 01/26/20 11:10 98.0 F 01/26/20 08:00 100 01/26/20 07:21 97.4 F L Weight Weight 108 lb 3.2 oz Most Recent Monitor Data Heart Rate from ECG 112 NIBP 131/64 NIBP BP-Mean 86 Respiration from ECG 21 SpO2 95 I&O: 01/25/20 01/26/20 01/27/20 06:59 06:59 06:59 Intake Total 400 2417 550 Output Total 250 550 550 Balance 150 1867 0 Result Diagrams: 01/24/20 14:20 01/24/20 14:20 Radiology Reviewed by me: Yes EKG Reviewed by me: Yes ROS - Review of Systems Constitutional: denies: fever, chills, sweats, weakness, malaise, other Eyes: denies: pain, vision change, conjunctivae inflammation, eyelid inflammation, redness, other ENT: denies: ear pain, ear discharge, nose pain, nose discharge, nose congestion, mouth pain, mouth swelling, throat pain, throat swelling, other Respiratory: reports: shortness of breath Genitourinary: denies: dysuria, frequency, incontinence, hematuria, retention, other Musculoskeletal: denies: neck pain, shoulder pain, arm pain, back pain, hand pain, leg pain, foot pain, other Neurological: reports: weakness. denies: numbness, incoordination, change in speech, confusion, seizures, other - Medication Medications: Active Medications Generic Name Dose Route Start Last Admin Trade Name Freq PRN Reason Stop Dose Admin Albuterol/Ipratropium 3 ml 01/26/20 14:30 01/26/20 14:55 Ipratropium/Albuterol Sulfate 3 Ml Neb NEB 3 ml [id number] BANDAR Administration Enoxaparin Sodium 40 mg 01/25/20 09:00 01/26/20 08:41 Enoxaparin Sodium 40 Mg/0.4 Ml Syringe SC 40 mg 0900 BANDAR Administration Azithromycin 500 mg/ Sodium 250 mls @ 250 mls/hr 01/25/20 15:00 01/26/20 14:27 Chloride IVPB 250 mls Q24HR BANDAR Administration Ceftriaxone Sodium 1 gm/ 100 mls @ 200 mls/hr 01/25/20 16:00 01/25/20 16:01 Sodium Chloride IVPB 100 mls Q24HR BANDAR Administration Mometasone Furoate/Formoterol Fumar 2 puff 01/25/20 18:30 01/26/20 08:24 Mometasone 200 Mcg/Formoterol 5 Mcg 120 Puff Inhaler INH Not Given BID-RT BANDAR Sodium Chloride 10 ml 01/24/20 23:30 01/25/20 01:00 Flush - Normal Saline 10 Ml Syringe IVF 10 ml PRN PRN Administration Saline Flush - Exam General Appearance: awake alert Eye: PERRL ENT: normocephalic atraumatic Neck: supple Respiratory: CTAB Cardiovascular: RRR Gastrointestinal: soft Extremities: no cyanosis Skin: normal turgor Neurological: CN's grossly intact, normal sensation to touch, no focal deficits, no new deficit Musculoskeletal: normal tone, normal strength, no muscle wasting PSYCH: normal affect, normal behavior, oriented to person, oriented to place Results - Labs Result Diagrams: 01/24/20 14:20 01/24/20 14:20 Lab results: WBC 11.1 thou/uL (4.8-10.8) H 01/24/20 14:20 Hgb 15.4 g/dL (12.0-16.0) 01/24/20 14:20 Hct 48.0 % (36.0-47.0) H 01/24/20 14:20 MCV 91.8 fL (78.0-98.0) 01/24/20 14:20 Plt Count 364 thou/uL (130-400) 01/24/20 14:20 Neutrophils % 81.4 % (42.0-75.0) H 01/24/20 14:20 ABG pH 7.41 (7.35-7.45) 01/24/20 14:48 ABG pCO2 46.6 mmHg (35.0-45.0) H 01/24/20 14:48 ABG pO2 158.0 mmHg (> 80.0) H 01/24/20 14:48 Sodium 141 mmol/L (136-145) 01/24/20 14:20 Potassium 4.3 mmol/L (3.5-5.1) 01/24/20 14:20 Chloride 96 mmol/L (98-107) L 01/24/20 14:20 Carbon Dioxide 33 mmol/L (23-31) H 01/24/20 14:20 BUN 12 mg/dL (9.8-20.1) 01/24/20 14:20 Creatinine 0.82 mg/dL (0.6-1.1) 01/24/20 14:20 Glucose 136 mg/dL (80-115) H 01/24/20 14:20 Lactic Acid 1.2 mmol/L (0.5-2.2) 01/24/20 17:24 Calcium 10.1 mg/dL (7.8-10.44) 01/24/20 14:20 Total Bilirubin 0.7 mg/dL (0.2-1.2) 01/24/20 14:20 AST 15 U/L (5-34) 01/24/20 14:20 ALT 12 U/L (8-55) 01/24/20 14:20 Alkaline Phosphatase 88 U/L (40-110) 01/24/20 14:20 Troponin I 0.022 ng/mL (< 0.028) 01/25/20 01:08 B-Natriuretic Peptide 33.1 pg/mL (0-100) 01/24/20 14:20 Serum Total Protein 7.3 g/dL (6.0-8.3) 01/24/20 14:20 Albumin 4.2 g/dL (3.4-4.8) 01/24/20 14:20 Urine Ketones Negative mg/dL (Negative) 01/24/20 14:37 Urine Blood 1+ (Negative) A 01/24/20 14:37 Urine Nitrite Negative (Negative) 01/24/20 14:37 Ur Leukocyte Esterase 500 Moses/uL (Negative) A 01/24/20 14:37 Urine RBC 4-6 HPF (0-3) A 01/24/20 14:37 Urine WBC 21-50 HPF (0-3) A 01/24/20 14:37 Ur Squamous Epith Cells None Seen HPF (0-3) 01/24/20 14:37 Urine Bacteria 1+ HPF (None Seen) A 01/24/20 14:37 PN A/P (1) Altered mental state Code(s): R41.82 - ALTERED MENTAL STATUS, UNSPECIFIED Status: Acute (2) Acute and chronic respiratory failure Code(s): J96.20 - ACUTE AND CHR RESP FAILURE, UNSP W HYPOXIA OR HYPERCAPNIA Status: Acute Qualifiers: Respiratory failure complication: hypercapnia Qualified Code(s): J96.22 - Acute and chronic respiratory failure with hypercapnia (3) Sepsis Code(s): A41.9 - SEPSIS, UNSPECIFIED ORGANISM Status: Acute (4) UTI (urinary tract infection) Status: Acute Qualifiers: Urinary tract infection type: acute cystitis Hematuria presence: without hematuria Qualified Code(s): N30.00 - Acute cystitis without hematuria (5) COPD exacerbation Code(s): J44.1 - CHRONIC OBSTRUCTIVE PULMONARY DISEASE W (ACUTE) EXACERBATION Status: Acute (6) Lung cancer Code(s): C34.90 - MALIGNANT NEOPLASM OF UNSP PART OF UNSP BRONCHUS OR LUNG Status: Chronic - Plan Daily Plan: plan discussed w/ family (), PT/OT, speech therapy, respiratory therapy, DVT proph w/SCDs Ms. Farrispard is consulted for altered mental status. AMS seems to be multifactorial most likely secondary to infectious and metaboloc etiology. MRI brain pending to assess intracranial process. EEG reviewed and was negative for seizure activity. Neuro checks every 4 hours. Continue home medications. Continue medical management per primary team. PT/OT DVT Prophylaxis. Plan discussed with the patient, and the nursing staff.
[2020-01-26] MEDS: cefTRIAXone\\ROCEPHIN 1 GM in Sodium Chloride 0.9% 100 ML IVPB SCH (17:56)
[2020-01-27 03:47] LABS: #Lymphocytes 0.7 thou/uL (1.20-3.40); #Monocytes 0.6 thou/uL (0.11-0.59); #Neutrophils 11.8 thou/uL (1.40-6.50); %Basophils 0.2 % (0.0-1.0); %Eosinophils 0.2 % (0.0-10.0); %Lymphocytes 5.6 % (21.0-51.0); %Monocytes 4.2 % (0.0-10.0); %Neutrophils 89.8 % (42.0-75.0); Hemoglobin 11.7 g/dL (12.0-16.0); Mean Corpuscular HGB CONC 32.1 g/dL (32.0-36.0); Mean Corpuscular Hemoglobin 29.4 pg (27.0-31.0); Mean Corpuscular Volume 91.6 fL (78.0-98.0); Mean Platelet Volume 6.3 fL (7.4-10.4); Platelet Count 298 thou/uL (130-400); RBC Distribution Width 11.6 % (11.5-14.5); Red Blood Cell (RBC) Count 3.98 mill/uL (4.20-5.40); White Blood Cell (WBC) Count 13.2 thou/uL (4.8-10.8)
[2020-01-27 04:12] LABS: Anion Gap 12 mmol/L (10-20); BUN (Urea Nitrogen) 13 mg/dL (9.8-20.1); Calc. Creatinine Clearance 68 mL/min (70-130); Carbon Dioxide 29 mmol/L (23-31); Chloride 102 mmol/L (98-107); Estimated GFR-MDRD Greater than 90; Glucose 138 mg/dL (80-115); Potassium 4.1 mmol/L (3.5-5.1); Sodium 139 mmol/L (136-145)
[2020-01-27] MEDS: methylPREDNISolone Sod Succ 40 MG VIAL IVP SCH ×4 (06:07→23:08)
[2020-01-27] MEDS: Enoxaparin Sodium 40 MG/0.4 ML SYRINGE SC SCH (08:12)
[2020-01-27] MEDS: Mometasone 200 MCG/Formoterol 5 MCG 120 PUFF INHALER INH SCH ×2 (11:19→18:44)
--- NOTE | 2020-01-27 11:47 | MRI ---
MRI BRAIN WITHOUT CONTRAST: Date; 01/27/2020 HISTORY: Encephalopathy. FINDINGS: Correlation made with CT scan of 01/24/2020. No restricted diffusion is seen. No evidence of infarct, hemorrhage, midline shift, or abnormal extra -axial fluid collections are normal. The ventricular size is normal and the basilar cisterns are browne nt. There are foci of T2 prolongation in the periventricular white matter consistent with mild chroni c small vessel ischemic disease. The visualized paranasal sinuses and mastoid air cells are well aera vaibhav. No tonsillar herniation is seen. IMPRESSION: No evidence of acute intracranial process. POS: [facility]
--- NOTE | 2020-01-27 15:27 | PRG ---
DATE OF SERVICE: 01/27/2020 SUBJECTIVE: Isabella Denton's events have been reviewed. She has no recollection of coming to the hospital. OBJECTIVE: VITAL SIGNS: Heart rate is 106, blood pressure 131/87, respiratory rate is 18. NEUROLOGIC: She thinks it is Wednesday. LUNGS: Distant and clear. HEART: Regular rhythm. ABDOMEN: Soft. LABORATORY DATA: Electrolytes are normal. Creatinine is 0.6. CBC; white count 13.2, hemoglobin 11.7, platelets 298. IMPRESSION: Acute on chronic respiratory failure secondary to COPD exacerbation. Her encephalopathy is likely related to respiratory failure and muscle fatigue. She was a do not resuscitate patient up until recently. Her brother a miserable on the ventilator and she told me that she never wanted to go through what he went through. She has been reasonably stable for the last few years and when she was in my office within the last month, she told me she wanted to be a full code again. She is obviously not capable of making any decisions regarding this at this time. We will continue current supportive care. Job ID: [id number]
--- NOTE | 2020-01-27 15:35 | PDOC.NEUPN ---
- Subjective Encounter Date: 01/27/20 Subjective: Patient mental status has been improved in the last 24 hours. MRI Brain and EEG negative. at bedside. - Objective Vital Signs & Weight: Vital Signs (12 hours) Temp Pulse Resp Pulse Ox 01/27/20 11:43 96 01/27/20 11:40 98.8 F 01/27/20 11:16 82 24 H 01/27/20 08:30 91 26 H 97 01/27/20 08:00 91 L 01/27/20 07:12 98.2 F Weight Weight 108 lb 3.2 oz Most Recent Monitor Data Heart Rate from ECG 97 NIBP 149/76 NIBP BP-Mean 100 Respiration from ECG 19 SpO2 92 I&O: 01/26/20 01/27/20 01/28/20 06:59 06:59 06:59 Intake Total 2417 932 100 Output Total 550 1625 Balance 3637 -914 100 Result Diagrams: 01/27/20 03:21 01/27/20 03:21 Radiology Reviewed by me: Yes EKG Reviewed by me: Yes ROS - Review of Systems Constitutional: denies: fever, chills, sweats, weakness, malaise, other Eyes: denies: pain, vision change, conjunctivae inflammation, eyelid inflammation, redness, other ENT: denies: ear pain, ear discharge, nose pain, nose discharge, nose congestion, mouth pain, mouth swelling, throat pain, throat swelling, other Respiratory: reports: cough, shortness of breath All Systems: All other systems reviewed; all pertinent +/- noted in HPI/Subj - Medication Medications: Active Medications Generic Name Dose Route Start Last Admin Trade Name Alf PRN Reason Stop Dose Admin Albuterol/Ipratropium 3 ml 01/26/20 14:30 01/27/20 15:15 Ipratropium/Albuterol Sulfate 3 Ml Neb NEB Not Given [id number] BANDAR Enoxaparin Sodium 40 mg 01/25/20 09:00 01/27/20 08:12 Enoxaparin Sodium 40 Mg/0.4 Ml Syringe SC 40 mg 0900 BANDAR Administration Ceftriaxone Sodium 1 gm/ 100 mls @ 200 mls/hr 01/25/20 16:00 01/26/20 17:56 Sodium Chloride IVPB 100 mls Q24HR BANDAR Administration Methylprednisolone Sodium Succinate 20 mg 01/26/20 18:00 01/27/20 12:02 Methylprednisolone Sod Succ 40 Mg Vial IVP 20 mg Q6HR BANDAR Administration Mometasone Furoate/Formoterol Fumar 2 puff 01/25/20 18:30 01/27/20 11:19 Mometasone 200 Mcg/Formoterol 5 Mcg 120 Puff Inhaler INH 2 puff BID-RT BANDAR Administration Sodium Chloride 10 ml 01/24/20 23:30 01/25/20 01:00 Flush - Normal Saline 10 Ml Syringe IVF 10 ml PRN PRN Administration Saline Flush - Exam General Appearance: awake alert Eye: PERRL ENT: normocephalic atraumatic Neck: supple Cardiovascular: RRR Gastrointestinal: soft Extremities: no cyanosis Neurological: CN's grossly intact, normal sensation to touch, no weakness, no focal deficits, no new deficit Musculoskeletal: normal tone, no muscle wasting, generalized weakness PSYCH: normal affect, normal behavior, oriented to person, oriented to place Results - Labs Result Diagrams: 01/27/20 03:21 01/27/20 03:21 Lab results: WBC 13.2 thou/uL (4.8-10.8) H 01/27/20 03:21 Hgb 11.7 g/dL (12.0-16.0) L 01/27/20 03:21 Hct 36.4 % (36.0-47.0) 01/27/20 03:21 MCV 91.6 fL (78.0-98.0) 01/27/20 03:21 Plt Count 298 thou/uL (130-400) 01/27/20 03:21 Neutrophils % 89.8 % (42.0-75.0) H 01/27/20 03:21 ABG pH 7.41 (7.35-7.45) 01/24/20 14:48 ABG pCO2 46.6 mmHg (35.0-45.0) H 01/24/20 14:48 ABG pO2 158.0 mmHg (> 80.0) H 01/24/20 14:48 Sodium 139 mmol/L (136-145) 01/27/20 03:21 Potassium 4.1 mmol/L (3.5-5.1) 01/27/20 03:21 Chloride 102 mmol/L (98-107) 01/27/20 03:21 Carbon Dioxide 29 mmol/L (23-31) 01/27/20 03:21 BUN 13 mg/dL (9.8-20.1) 01/27/20 03:21 Creatinine 0.62 mg/dL (0.6-1.1) 01/27/20 03:21 Glucose 138 mg/dL (80-115) H 01/27/20 03:21 Lactic Acid 1.2 mmol/L (0.5-2.2) 01/24/20 17:24 Calcium 9.0 mg/dL (7.8-10.44) 01/27/20 03:21 Total Bilirubin 0.7 mg/dL (0.2-1.2) 01/24/20 14:20 AST 15 U/L (5-34) 01/24/20 14:20 ALT 12 U/L (8-55) 01/24/20 14:20 Alkaline Phosphatase 88 U/L (40-110) 01/24/20 14:20 Troponin I 0.022 ng/mL (< 0.028) 01/25/20 01:08 B-Natriuretic Peptide 33.1 pg/mL (0-100) 01/24/20 14:20 Serum Total Protein 7.3 g/dL (6.0-8.3) 01/24/20 14:20 Albumin 4.2 g/dL (3.4-4.8) 01/24/20 14:20 Urine Ketones Negative mg/dL (Negative) 01/24/20 14:37 Urine Blood 1+ (Negative) A 01/24/20 14:37 Urine Nitrite Negative (Negative) 01/24/20 14:37 Ur Leukocyte Esterase 500 Moses/uL (Negative) A 01/24/20 14:37 Urine RBC 4-6 HPF (0-3) A 01/24/20 14:37 Urine WBC 21-50 HPF (0-3) A 01/24/20 14:37 Ur Squamous Epith Cells None Seen HPF (0-3) 01/24/20 14:37 Urine Bacteria 1+ HPF (None Seen) A 01/24/20 14:37 - Radiology Interpretation MRI - head Additional Comment: No acute intracranial pathology PN A/P (1) Altered mental state Code(s): R41.82 - ALTERED MENTAL STATUS, UNSPECIFIED Status: Acute (2) Acute and chronic respiratory failure Code(s): J96.20 - ACUTE AND CHR RESP FAILURE, UNSP W HYPOXIA OR HYPERCAPNIA Status: Acute Qualifiers: Respiratory failure complication: hypercapnia Qualified Code(s): J96.22 - Acute and chronic respiratory failure with hypercapnia (3) Sepsis Code(s): A41.9 - SEPSIS, UNSPECIFIED ORGANISM Status: Acute (4) UTI (urinary tract infection) Status: Acute Qualifiers: Urinary tract infection type: acute cystitis Hematuria presence: without hematuria Qualified Code(s): N30.00 - Acute cystitis without hematuria (5) COPD exacerbation Code(s): J44.1 - CHRONIC OBSTRUCTIVE PULMONARY DISEASE W (ACUTE) EXACERBATION Status: Acute (6) Lung cancer Code(s): C34.90 - MALIGNANT NEOPLASM OF UNSP PART OF UNSP BRONCHUS OR LUNG Status: Chronic - Plan Daily Plan: plan discussed w/ family ( at bedside), PT/OT, speech therapy, respiratory therapy, DVT proph w/SCDs Ms. Milesd is consulted for altered mental status. AMS seems to be multifactorial most likely secondary to infectious and respiratory failure. Intracranial process less likely with negative studies. MRI brain to assess intracranial process is negative.. EEG reviewed and was negative for seizure activity. Neuro checks every 4 hours. Continue home medications. Continue medical management per primary team. PT/OT DVT Prophylaxis. Patient should follow up with Dr. Forrester as outpatient for evaluation of memory issues. Plan discussed with the patient, and the nursing staff.
--- NOTE | 2020-01-27 15:54 | PDOC.HOSPP ---
- Subjective Encounter Date: 01/27/20 Encounter Time: 15:52 Subjective: She has ruled out for a stroke with a negative MRI. Her EEG also was negative for seizures. Her urine culture has not shown any growth. - Objective Vital Signs & Weight: Vital Signs (12 hours) Temp Pulse Resp Pulse Ox 01/27/20 11:43 96 01/27/20 11:40 98.8 F 01/27/20 11:16 82 24 H 01/27/20 08:30 91 26 H 97 01/27/20 08:00 91 L 01/27/20 07:12 98.2 F Weight Weight 108 lb 3.2 oz Most Recent Monitor Data Heart Rate from ECG 97 NIBP 149/76 NIBP BP-Mean 100 Respiration from ECG 19 SpO2 92 I&O: 01/26/20 01/27/20 01/28/20 06:59 06:59 06:59 Intake Total 2417 932 100 Output Total 550 1625 Balance 1867 -693 100 Result Diagrams: 01/27/20 03:21 01/27/20 03:21 Radiology Reviewed by me: Yes EKG Reviewed by me: Yes Hospitalist ROS - Review of Systems ROS unobtainable: due to mental status Constitutional: reports: weakness, malaise Respiratory: reports: SOB with excertion Gastrointestinal: reports: nausea Neurological: reports: weakness, numbness - Medication Medications: Active Medications Generic Name Dose Route Start Last Admin Trade Name Freq PRN Reason Stop Dose Admin Albuterol/Ipratropium 3 ml 01/26/20 14:30 01/27/20 15:15 Ipratropium/Albuterol Sulfate 3 Ml Neb NEB Not Given G1PD-IU BANDAR Enoxaparin Sodium 40 mg 01/25/20 09:00 01/27/20 08:12 Enoxaparin Sodium 40 Mg/0.4 Ml Syringe SC 40 mg 0900 BANDAR Administration Ceftriaxone Sodium 1 gm/ 100 mls @ 200 mls/hr 01/25/20 16:00 01/26/20 17:56 Sodium Chloride IVPB 100 mls Q24HR BANDAR Administration Methylprednisolone Sodium Succinate 20 mg 01/26/20 18:00 01/27/20 12:02 Methylprednisolone Sod Succ 40 Mg Vial IVP 20 mg Q6HR BANDAR Administration Mometasone Furoate/Formoterol Fumar 2 puff 01/25/20 18:30 01/27/20 11:19 Mometasone 200 Mcg/Formoterol 5 Mcg 120 Puff Inhaler INH 2 puff BID-RT BANDAR Administration Sodium Chloride 10 ml 01/24/20 23:30 01/25/20 01:00 Flush - Normal Saline 10 Ml Syringe IVF 10 ml PRN PRN Administration Saline Flush - Exam General Appearance: awake alert, ill appearing Eye: PERRL, anicteric sclera ENT: normocephalic atraumatic, no oropharyngeal lesions Neck: supple, symmetric, no JVD, no thyromegaly Heart: RRR, no murmur, no gallops, no rubs, normal peripheral pulses Respiratory: CTAB, no wheezes, no rales, no ronchi, normal chest expansion Gastrointestinal: soft, non-tender, non-distended, normal bowel sounds, no palpable masses Neurological: cranial nerve grossly intact Psychiatric: normal affect, normal behavior, A&O x 3, oriented to person Hosp A/P (1) Acute and chronic respiratory failure Code(s): J96.20 - ACUTE AND CHR RESP FAILURE, UNSP W HYPOXIA OR HYPERCAPNIA Status: Acute Qualifiers: Respiratory failure complication: hypercapnia Qualified Code(s): J96.22 - Acute and chronic respiratory failure with hypercapnia (2) COPD exacerbation Code(s): J44.1 - CHRONIC OBSTRUCTIVE PULMONARY DISEASE W (ACUTE) EXACERBATION Status: Acute (3) Lung cancer Code(s): C34.90 - MALIGNANT NEOPLASM OF UNSP PART OF UNSP BRONCHUS OR LUNG Status: Chronic (4) UTI (urinary tract infection) Status: Acute Qualifiers: Urinary tract infection type: acute cystitis Hematuria presence: without hematuria Qualified Code(s): N30.00 - Acute cystitis without hematuria Plan: Her cultures are negative to date. - Plan #1. Acute on chronic respiratory failure with hypoxia. Likely from COPD exacerbation. Continue O2 supplementation. 2. COPD exacerbation. Continue bronchodilators. 3. UTI. Urine cultures are actually negative. I will continue empiric antibiotics for now. 4. Acute encephalopathy. Likely combination of #3 and #1 above. Continue current care as above. EEG was reviewed and this did not show any signs of seizure.
[2020-01-27] MEDS: cefTRIAXone\\ROCEPHIN 1 GM in Sodium Chloride 0.9% 100 ML IVPB SCH (16:13)
[2020-01-28] MEDS: methylPREDNISolone Sod Succ 40 MG VIAL IVP SCH (04:58)
[2020-01-28] MEDS: Mometasone 200 MCG/Formoterol 5 MCG 120 PUFF INHALER INH SCH ×2 (07:15→19:26)
[2020-01-28] MEDS: Enoxaparin Sodium 40 MG/0.4 ML SYRINGE SC SCH (08:33)
--- NOTE | 2020-01-28 13:57 | PRG ---
DATE OF SERVICE: 01/28/2020 SUBJECTIVE: Ms. Denton is progressing from a strength standpoint. She is ambulating in room with physical therapy. OBJECTIVE: VITAL SIGNS: She is afebrile. Oximetry is 95% on 2 L and she is near her baseline. Pulse is 100, which is her baseline. Respiratory rate is 20. Blood pressure 146/82. LUNGS: Unchanged. HEART: Unchanged. ABDOMEN: Unchanged. IMPRESSION: 1. Encephalopathy most likely secondary to COPD exacerbation with respiratory failure. 2. Deconditioning. She may well enough to go home without rehab, but evaluation for residential in the [place] area might be appropriate tomorrow. 3. Acute hypoxic and hypercarbic respiratory failure on top of chronic hypoxic and hypercarbic respiratory failure. She may be a candidate for nocturnal ventilator. Discussed this with her . We have also asked him to discuss her code status again. She was a DNR until her last visit. I have explained to him that if she gets intubated, he will probably have to decide to terminally extubate her at some point in time. Hopefully, we can continue to manage her with noninvasive ventilation at home. She told me that she has long quit smoking, but he told me that she still smokes. She has very severe anxiety and is not surprising to hear that. We will continue to follow. Job ID: [id number]
[2020-01-28] MEDS: Acetaminophen 325 MG TAB PO PRN ×2 (16:31→20:41)
[2020-01-28] MEDS: cefTRIAXone\\ROCEPHIN 1 GM in Sodium Chloride 0.9% 100 ML IVPB SCH (16:32)
[2020-01-28] MEDS: ALPRAZolam 0.25 MG TAB PO PRN (20:41)
[2020-01-29] MEDS: Acetaminophen 325 MG TAB PO PRN (04:10)
[2020-01-29] MEDS: Mometasone 200 MCG/Formoterol 5 MCG 120 PUFF INHALER INH SCH ×2 (07:20→19:33)
[2020-01-29] MEDS ORDERED: predniSONE 20 MG TAB PO SCH ×2 (08:00→12:30)
[2020-01-29] MEDS: Citalopram 20 MG TAB PO SCH (08:29)
[2020-01-29] MEDS: Multivit, Therapeutic 1 TAB PO SCH (08:29)
[2020-01-29] MEDS: Magnesium Oxide 400 MG TAB PO SCH (08:29)
[2020-01-29] MEDS: Enoxaparin Sodium 40 MG/0.4 ML SYRINGE SC SCH (08:38)
[2020-01-29] MEDS: Cholecalciferol 1,000 UNITS (25 MCG) TAB PO SCH (08:51)
[2020-01-29] MEDS: ALPRAZolam 0.25 MG TAB PO PRN ×2 (11:47→18:39)
--- NOTE | 2020-01-29 12:52 | PRG ---
DATE OF SERVICE: 01/29/2020 SUBJECTIVE: Ms. Denton was evaluated. Her who apparently is a common-law is at the bedside. Whenever I asked her questions, she looked at him for an answer. She did not directly answer any questions today. OBJECTIVE: VITAL SIGNS: She is afebrile, heart rate is 95, respiratory rate 16, oximetry is 100% on 2 L, blood pressure 130/84 currently when she went for a walk in the halls. LUNGS: Free of wheezes. HEART: Regular rhythm. ABDOMEN: Soft. ASSESSMENT AND PLAN: We will attempt to set her up for nocturnal ventilation, although it is unclear whether or not, she will be compliant with this. She did not like BiPAP that was given to her on admission. IV antimicrobial therapy can be discontinued at this point. IV steroids can be discontinued at this point, so IV steroids have been discontinued. She actually needs more than just 10 mg a day of prednisone in my opinion. Her says that she wants to be a do not resuscitate patient. She confirms that. She did nod that she never wanted to go through what her brother went through as she has explained to me in the office in the past. Do not resuscitate order will be placed in the computer. Job ID: [id number]
--- NOTE | 2020-01-29 13:29 | PDOC.HOSPP ---
- Subjective Encounter Date: 01/28/20 Encounter Time: 15:25 Subjective: Patient was seen and evaluated at the bedside. This 69-year-old admitted to the hospital for acute on chronic COPD exacerbation in addition to urinary tract infection. She is doing very well today. No family at bedside when I visited. - Objective Vital Signs & Weight: Vital Signs (12 hours) Temp Pulse Resp BP Pulse Ox 01/29/20 07:34 97.8 F 95 16 130/84 100 01/29/20 07:04 86 18 100 01/29/20 02:30 81 18 100 Weight Weight 108 lb 3.2 oz Most Recent Monitor Data Heart Rate from ECG 97 NIBP 149/76 NIBP BP-Mean 100 Respiration from ECG 19 SpO2 92 I&O: 01/28/20 01/29/20 01/30/20 06:59 06:59 06:59 Intake Total 580 350 Balance 580 350 Result Diagrams: 01/27/20 03:21 01/27/20 03:21 Radiology Reviewed by me: Yes EKG Reviewed by me: Yes Hospitalist ROS - Review of Systems Constitutional: reports: weakness, malaise Respiratory: reports: cough, dry, SOB with excertion Gastrointestinal: reports: nausea - Medication Medications: Active Medications Generic Name Dose Route Start Last Admin Trade Name Freq PRN Reason Stop Dose Admin Acetaminophen 650 mg 01/25/20 00:24 01/29/20 04:10 Acetaminophen 325 Mg Tab PO 650 mg Q4H PRN Administration Headache/Fever/Mild Pain (1-3) Albuterol/Ipratropium 3 ml 01/26/20 14:30 01/29/20 10:01 Ipratropium/Albuterol Sulfate 3 Ml Neb NEB 3 ml [id number] BANDAR Administration Alprazolam 0.25 mg 01/26/20 12:14 01/29/20 11:47 Alprazolam 0.25 Mg Tab PO 0.25 mg TIDPRN PRN Administration Anxiety Cholecalciferol 5,000 units 01/29/20 09:00 01/29/20 08:51 Cholecalciferol 1,000 Units (25 Mcg) Tab PO Not Given DAILY BANDAR Citalopram Hydrobromide 20 mg 01/29/20 09:00 01/29/20 08:29 Citalopram 20 Mg Tab PO 20 mg DAILY BANDAR Administration Enoxaparin Sodium 40 mg 01/25/20 09:00 01/29/20 08:38 Enoxaparin Sodium 40 Mg/0.4 Ml Syringe SC 40 mg 0900 BANDAR Administration Magnesium Oxide 400 mg 01/29/20 09:00 01/29/20 08:29 Magnesium Oxide 400 Mg Tab PO 400 mg DAILY BANDAR Administration Mometasone Furoate/Formoterol Fumar 2 puff 01/25/20 18:30 01/29/20 07:20 Mometasone 200 Mcg/Formoterol 5 Mcg 120 Puff Inhaler INH 2 puff BID-RT BANDAR Administration Multivitamins 1 tab 01/29/20 09:00 01/29/20 08:29 Multivit, Therapeutic 1 Tab PO 1 tab DAILY BANDAR Administration Sodium Chloride 10 ml 01/24/20 23:30 01/25/20 01:00 Flush - Normal Saline 10 Ml Syringe IVF 10 ml PRN PRN Administration Saline Flush - Exam General Appearance: awake alert, ill appearing Eye: PERRL, anicteric sclera ENT: normocephalic atraumatic, no oropharyngeal lesions Neck: supple, symmetric, no JVD, no thyromegaly, no lymphadenopathy Heart: RRR, no murmur, no gallops, no rubs, normal peripheral pulses Respiratory: CTAB, no wheezes, no rales, no ronchi, normal chest expansion Gastrointestinal: soft, non-tender, non-distended Neurological: cranial nerve grossly intact, normal sensation to touch Musculoskeletal: normal tone, normal strength, no muscle wasting, generalized weakness Psychiatric: normal affect, normal behavior, A&O x 3 Hosp A/P (1) Acute and chronic respiratory failure Code(s): J96.20 - ACUTE AND CHR RESP FAILURE, UNSP W HYPOXIA OR HYPERCAPNIA Status: Acute Qualifiers: Respiratory failure complication: hypercapnia Qualified Code(s): J96.22 - Acute and chronic respiratory failure with hypercapnia (2) COPD exacerbation Code(s): J44.1 - CHRONIC OBSTRUCTIVE PULMONARY DISEASE W (ACUTE) EXACERBATION Status: Acute (3) Lung cancer Code(s): C34.90 - MALIGNANT NEOPLASM OF UNSP PART OF UNSP BRONCHUS OR LUNG Status: Chronic (4) UTI (urinary tract infection) Status: Acute Qualifiers: Urinary tract infection type: acute cystitis Hematuria presence: without hematuria Qualified Code(s): N30.00 - Acute cystitis without hematuria - Plan PT/OT, respiratory therapy, incentive spirometry #1. Acute on chronic respiratory failure with hypoxia. Likely from COPD exacerbation. Continue O2 supplementation. 01/29/2020. Continue home O2. 2. COPD exacerbation. Continue bronchodilators. 3. UTI. Urine cultures are actually negative. I will continue empiric antibiotics for now. 4. Acute encephalopathy. Likely combination of #3 and #1 above. Continue current care as above. EEG was reviewed and this did not show any signs of seizure.
--- NOTE | 2020-01-29 13:32 | PDOC.HOSPP ---
- Subjective Encounter Date: 01/29/20 Encounter Time: 13:30 Subjective: Ms. Denton was seen and evaluated today January 29, 2020. Her was at the bedside when I visited. She is on O2 via nasal cannula. She seems comfortable and is not in any respiratory distress. Pulmonary wants to set her up with nocturnal events at home. Hopefully if this should happen next 24 hours she gets to be discharged home. - Objective Vital Signs & Weight: Vital Signs (12 hours) Temp Pulse Resp BP Pulse Ox 01/29/20 07:34 97.8 F 95 16 130/84 100 01/29/20 07:04 86 18 100 01/29/20 02:30 81 18 100 Weight Weight 108 lb 3.2 oz Most Recent Monitor Data Heart Rate from ECG 97 NIBP 149/76 NIBP BP-Mean 100 Respiration from ECG 19 SpO2 92 I&O: 01/28/20 01/29/20 01/30/20 06:59 06:59 06:59 Intake Total 580 350 Balance 580 350 Result Diagrams: 01/27/20 03:21 01/27/20 03:21 Radiology Reviewed by me: Yes EKG Reviewed by me: Yes Hospitalist ROS - Review of Systems ROS unobtainable: due to mental status Constitutional: reports: weakness, malaise Respiratory: reports: shortness of breath, SOB with excertion - Medication Medications: Active Medications Generic Name Dose Route Start Last Admin Trade Name Freq PRN Reason Stop Dose Admin Acetaminophen 650 mg 01/25/20 00:24 01/29/20 04:10 Acetaminophen 325 Mg Tab PO 650 mg Q4H PRN Administration Headache/Fever/Mild Pain (1-3) Albuterol/Ipratropium 3 ml 01/26/20 14:30 01/29/20 10:01 Ipratropium/Albuterol Sulfate 3 Ml Neb NEB 3 ml [id number] BANDAR Administration Alprazolam 0.25 mg 01/26/20 12:14 01/29/20 11:47 Alprazolam 0.25 Mg Tab PO 0.25 mg TIDPRN PRN Administration Anxiety Cholecalciferol 5,000 units 01/29/20 09:00 01/29/20 08:51 Cholecalciferol 1,000 Units (25 Mcg) Tab PO Not Given DAILY BANDAR Citalopram Hydrobromide 20 mg 01/29/20 09:00 01/29/20 08:29 Citalopram 20 Mg Tab PO 20 mg DAILY BANDAR Administration Enoxaparin Sodium 40 mg 01/25/20 09:00 01/29/20 08:38 Enoxaparin Sodium 40 Mg/0.4 Ml Syringe SC 40 mg 0900 BANDAR Administration Magnesium Oxide 400 mg 01/29/20 09:00 01/29/20 08:29 Magnesium Oxide 400 Mg Tab PO 400 mg DAILY BANDAR Administration Mometasone Furoate/Formoterol Fumar 2 puff 01/25/20 18:30 01/29/20 07:20 Mometasone 200 Mcg/Formoterol 5 Mcg 120 Puff Inhaler INH 2 puff BID-RT BANDAR Administration Multivitamins 1 tab 01/29/20 09:00 01/29/20 08:29 Multivit, Therapeutic 1 Tab PO 1 tab DAILY BANDAR Administration Sodium Chloride 10 ml 01/24/20 23:30 01/25/20 01:00 Flush - Normal Saline 10 Ml Syringe IVF 10 ml PRN PRN Administration Saline Flush - Exam General Appearance: NAD, awake alert Eye: PERRL, anicteric sclera ENT: normocephalic atraumatic, no oropharyngeal lesions, moist mucosa Neck: supple, symmetric, no JVD, no thyromegaly Heart: RRR, no murmur, no gallops, no rubs, normal peripheral pulses Respiratory: CTAB, no wheezes, no rales, no ronchi, normal chest expansion Gastrointestinal: soft, non-tender, non-distended, normal bowel sounds Neurological: cranial nerve grossly intact, normal sensation to touch Musculoskeletal: normal tone, normal strength, no muscle wasting, generalized weakness Psychiatric: normal affect, normal behavior, A&O x 3, oriented to person Hosp A/P (1) Acute and chronic respiratory failure Code(s): J96.20 - ACUTE AND CHR RESP FAILURE, UNSP W HYPOXIA OR HYPERCAPNIA Status: Acute Qualifiers: Respiratory failure complication: hypercapnia Qualified Code(s): J96.22 - Acute and chronic respiratory failure with hypercapnia (2) COPD exacerbation Code(s): J44.1 - CHRONIC OBSTRUCTIVE PULMONARY DISEASE W (ACUTE) EXACERBATION Status: Acute (3) Lung cancer Code(s): C34.90 - MALIGNANT NEOPLASM OF UNSP PART OF UNSP BRONCHUS OR LUNG Status: Chronic (4) UTI (urinary tract infection) Status: Acute Qualifiers: Urinary tract infection type: acute cystitis Hematuria presence: without hematuria Qualified Code(s): N30.00 - Acute cystitis without hematuria - Plan old records reviewed/req, PT/OT, social work msw #1. Acute on chronic respiratory failure with hypoxia. Likely from COPD exacerbation. Continue O2 supplementation. 01/28/2020. Continue home O2. 2. COPD exacerbation. Continue bronchodilators. 3. UTI. Urine cultures are actually negative. I will continue empiric antibiotics for now. 4. Acute encephalopathy. Likely combination of #3 and #1 above. Continue current care as above. EEG was reviewed and this did not show any signs of seizure. #5. Physical debility. We discussed plans for postacute discharge and the family wants home health with PT. This will be arranged through the caser in.
[2020-01-29] MEDS ORDERED: Cholecalciferol 1,000 UNITS (25 MCG) TAB PO SCH (15:15)
[2020-01-29] MEDS: HYDROcodone/Acetaminophen 5/325 mg Tablet PO PRN ×2 (15:34→20:13)
[2020-01-29] MEDS: Cefuroxime Axetil 250 MG TAB PO SCH (20:12)
[2020-01-30] MEDS: HYDROcodone/Acetaminophen 5/325 mg Tablet PO PRN (05:42)
[2020-01-30] MEDS: Mometasone 200 MCG/Formoterol 5 MCG 120 PUFF INHALER INH SCH (07:28)
[2020-01-30 07:33] VITALS: BP 144/86; TEMP 98.6
[2020-01-30] MEDS ORDERED: predniSONE 20 MG TAB PO SCH (08:00)
[2020-01-30] MEDS: Cefuroxime Axetil 250 MG TAB PO SCH (08:45)
[2020-01-30] MEDS: Magnesium Oxide 400 MG TAB PO SCH (08:45)
[2020-01-30] MEDS: Cholecalciferol 1,000 UNITS (25 MCG) TAB PO SCH (08:45)
[2020-01-30] MEDS: Multivit, Therapeutic 1 TAB PO SCH (08:46)
[2020-01-30] MEDS: Citalopram 20 MG TAB PO SCH (08:46)
[2020-01-30] MEDS: Enoxaparin Sodium 40 MG/0.4 ML SYRINGE SC SCH (08:47)
--- NOTE | 2020-01-30 10:10 | PDOC.DS.DS ---
Provider - Provider Date of Admission: 01/24/20 21:50 Date of Discharge: 01/30/20 Admitting Provider: Santosh Mackenzie Consultations: Pulmonary Primary Care Physician: [facility] Course - Hospital Course Hospital Course: Ms. Denton is a 69-year-old woman whose medical history includes COPD and chronic respiratory failure, she unfortunately continues to smoke tobacco who was admitted to the hospital with altered mental status and worsening shortness of breath. She was found to have evidence of a urinary tract infection which we suspect was the etiology of the mental status change. She initially required a brief stay over at the stepdown unit but was then transitioned to medical floor where we will continue to take care of her. Her urine culture did not show any growth. She was seen during this visit by her trap setter Dr. Garland who helped in getting her stable. Over the last few days she has stabilized enough and is being discharged home today. She will complete 5 more days of oral antibiotics at home. Pulmonary is arranging for home nocturnal ventilator to help her. She will follow up with Dr. Garland in the next 6 weeks. She is discharged in a stable condition. Resuscitation Status: 01/29/20 12:19 Resuscitation Status Routine Resuscitation Status: DNAR: NO Resuscitation Discussed with: pt and - Labs Lab Results: 01/27/20 03:21 01/27/20 03:21 Microbiology - Entire Visit 01/24/20 15:12 Venous blood - Left Arm Blood Culture - Final NO GROWTH IN 5 DAYS 01/24/20 14:20 Venous blood - Right Arm Blood Culture - Final NO GROWTH IN 5 DAYS 01/28/20 06:57 Stool C. difficile GDH Antigen & Toxins - Final 01/25/20 00:50 Urine clean catch Urine Culture - Final - Physical Exam Vitals: Vital Signs (12 hours) Temp Pulse Resp BP Pulse Ox 01/30/20 07:32 98.6 F 84 20 144/86 H 98 01/30/20 07:27 84 14 98 01/29/20 22:14 99 12 Weight Weight 108 lb 3.2 oz Most Recent Monitor Data Heart Rate from ECG 97 NIBP 149/76 NIBP BP-Mean 100 Respiration from ECG 19 SpO2 92 Physical Exam: The patient was seen and examined on the day of discharge. Problem - Problem (1) Acute and chronic respiratory failure Code(s): J96.20 - ACUTE AND CHR RESP FAILURE, UNSP W HYPOXIA OR HYPERCAPNIA Status: Acute Qualifiers: Respiratory failure complication: hypercapnia Qualified Code(s): J96.22 - Acute and chronic respiratory failure with hypercapnia Plan: Continue home O2. (2) COPD exacerbation Code(s): J44.1 - CHRONIC OBSTRUCTIVE PULMONARY DISEASE W (ACUTE) EXACERBATION Status: Acute Plan: Continue prednisone at home. (3) Lung cancer Code(s): C34.90 - MALIGNANT NEOPLASM OF UNSP PART OF UNSP BRONCHUS OR LUNG Status: Chronic (4) UTI (urinary tract infection) Status: Acute Qualifiers: Urinary tract infection type: acute cystitis Hematuria presence: without hematuria Qualified Code(s): N30.00 - Acute cystitis without hematuria Plan: She will complete 5 more days of oral antibiotics at home. - Time spent with Patient (mins): 30 Plan - Discharge Medications Prescriptions: Cefuroxime Axetil [Ceftin] 250 mg PO Q12HR #10 tab predniSONE 10 mg PO QAM-WM #10 tab Home Medications: Medication Instructions Recorded Confirmed Type Cholecalciferol (Vitamin D3) 5,000 unit PO DAILY 02/26/16 01/25/20 History [Vitamin D3] Ipratropium [place] [Atrovent] 1 unit IH Q4HR PRN 02/26/16 01/25/20 History Magnesium 400 mg PO DAILY 02/26/16 01/25/20 History Albuterol Sulfate [Proair HFA] 2 puff INH QID PRN 05/27/18 01/25/20 History Multivitamin [One-A-Day Essential] 1 tablet PO DAILY 05/27/18 01/25/20 History Albuterol Sulfate [Proventil Hfa] 2 puff INH Q2H PRN inh 06/04/18 01/25/20 Rx Citalopram [CeleXA] 20 mg PO DAILY #0 06/04/18 01/25/20 Rx Cefuroxime Axetil [Ceftin] 250 mg PO Q12HR #10 tab 01/30/20 Rx predniSONE 10 mg PO QAM-WM #10 tab 01/30/20 Rx Allergies: No Known Allergies Allergy (Verified 05/27/18 19:45) - Discharge Instructions Activity:: Activity as Tolerated Nourishment:: Heart Healthy Diet Therapies:: Home Health, Physical Therapy IV Therapy:: Not Applicable - Follow up Plan Referrals: [facility] [Primary Care Provider] - Adrien Garland MD [Active] - 02/26/20 Disposition: HOME HEALTH Quality - Care Measures CORE MEASURES:: N/A
== END 2020-01-30 12:16 | disposition home health service (06) | DRG 871 ==
LOC: ERS 14:09 → IMCU/EMU 21:50 → T4-A 01-27 15:27
PROVIDERS: ADMIT Internal Medicine; ATTEND Hospitalist
PROC: 5A09357 Assistance with Respiratory Ventilation, Less than 24 Consecutive Hours, Continuous Positive Airway Pressure (ICD-10-PCS; principal; 2020-01-24)
DX: A41.9 Sepsis, unspecified organism (principal); Z66 Do not resuscitate; J96.22 Acute and chronic respiratory failure with hypercapnia; J96.21 Acute and chronic respiratory failure with hypoxia; J44.1 Chronic obstructive pulmonary disease with (acute) exacerbation; G93.49 Other encephalopathy; C34.90 Malignant neoplasm of unspecified part of unspecified bronchus or lung; N30.00 Acute cystitis without hematuria; Z20.828 Contact with and (suspected) exposure to other viral communicable diseases; F17.210 Nicotine dependence, cigarettes, uncomplicated; Z99.81 Dependence on supplemental oxygen; Z28.21 Immunization not carried out because of patient refusal; Z79.899 Other long term (current) drug therapy; Z79.52 Long term (current) use of systemic steroids
CPT/HCPCS: 36415; 36600; 51701; 70450; 70551; 71045; 71275; 74177; 80048; 80053; 81003; 81015; 82805; 83605; 83880; 84484; 85025; 87040; 87086; 87324; 87449; 93005; 94640; 94660; 94664; 95712; 95816; 95819; 95957; 96365; 96367; 96375; J0456; J0696; J1650; J2920; J2930; J3475; J3490; J7050; J7512; J7620; Q9967; U0002

== ENCOUNTER 2020-03-12 11:05 | Outpatient (CLI) | payer MEDICARE, BC ==
--- NOTE | 2020-03-12 11:57 | RAD ---
EXAM: Chest PA and lateral: HISTORY: Dyspnea COMPARISON: 05/27/2008 Correlation: CT angiogram the chest 01/24/2020 FINDINGS: Heart: Normal cardiac silhouette Aorta: Stable atherosclerosis Pulmonary vessels: Normal Costophrenic angles: Costophrenic angles are clear. Lungs: Stable hyperinflation with chronic lung parenchymal changes. There is persistent irregular opa cification in the right upper lobe. Findings may represent scar. However, given overall changes along parenchyma possibility of a developing malignant lesion cannot be excluded. Better interrogatio n with PET imaging. Pneumothorax: No pneumothorax Osseous structures: No acute osseous abnormalities. There are chronic changes involving the right RIB S. There is a pleural-based calcification which was noted on the previous CT. IMPRESSION: 1. Stable COPD and chronic lung parenchymal changes 2. Stable changes along the right hemithorax with pleural-based calcifications. 3. Redemonstration of a spiculated opacity in the right lung, which may represent scarring. However, given the underlying changes lung parenchyma spiculated mass cannot be excluded. Consider PET imaging.
== END 2020-03-12 11:06 | disposition home or self-care (01) ==
LOC: BICRAD 11:05
PROVIDERS: ATTEND Internal Medicine Critical Care Medicine
DX: R06.00 Dyspnea, unspecified (principal); J44.9 Chronic obstructive pulmonary disease, unspecified; R91.8 Other nonspecific abnormal finding of lung field; J94.8 Other specified pleural conditions
CPT/HCPCS: 71046

== ENCOUNTER 2020-05-10 19:36 | Inpatient (IN) | payer MEDICARE, BC ==
[2020-05-10 20:01] LABS: #Lymphocytes 2.3 thou/uL (1.20-3.40); #Neutrophils 7.4 thou/uL (1.40-6.50); %Basophils 0.4 % (0.0-1.0); %Eosinophils 0.2 % (0.0-10.0); %Lymphocytes 21.3 % (21.0-51.0); %Monocytes 9.4 % (0.0-10.0); %Neutrophils 68.7 % (42.0-75.0); Hemoglobin 13.4 g/dL (12.0-16.0); Mean Corpuscular HGB CONC 32.6 g/dL (32.0-36.0); Mean Corpuscular Hemoglobin 30.2 pg (27.0-31.0); Mean Corpuscular Volume 92.7 fL (78.0-98.0); Mean Platelet Volume 6.2 fL (7.4-10.4); Platelet Count 361 thou/uL (130-400); RBC Distribution Width 11.9 % (11.5-14.5); Red Blood Cell (RBC) Count 4.43 mill/uL (4.20-5.40); White Blood Cell (WBC) Count 10.7 thou/uL (4.8-10.8)
[2020-05-10 20:17] LABS: Prothrombin Time 13.3 sec (12.0-14.7)
[2020-05-10 20:18] LABS: ALT (SGPT) 9 U/L (8-55); AST (SGOT) 12 U/L (5-34); Albumin 3.9 g/dL (3.4-4.8); Alkaline Phosphatase 105 U/L (40-110); Anion Gap 14 mmol/L (10-20); BUN (Urea Nitrogen) 15 mg/dL (9.8-20.1); Bilirubin, Total 0.5 mg/dL (0.2-1.2); Calc. Creatinine Clearance 0 mL/min (70-130); Calcium 9.7 mg/dL (7.8-10.44); Carbon Dioxide 31 mmol/L (23-31); Chloride 99 mmol/L (98-107); Globulin 2.7 g/dL (2.4-3.5); Glucose 103 mg/dL (80-115); Potassium 4.6 mmol/L (3.5-5.1); Protein, Total 6.6 g/dL (5.8-8.1); Sodium 139 mmol/L (136-145)
[2020-05-10 20:29] LABS: Base Excess (BEa) 3.4 mEq/L (-2.0 to +3.0); CO2 Tension 54.1 mmHg (35.0-45.0); Calcium, Ionized (arterial) 1.24 mmol/L (1.12-1.30); Carboxyhemoglobin (COHb) 0.2 gm% (0.0-3.0); Hemoglobin (Hb) 13.1 g/dL (12.0-16.0); O2 Tension (PaO2), arterial 171.2 mmHg (> 80.0); pH, Arterial 7.36 (7.35-7.45)
[2020-05-11 00:49] LABS: ALV-art Gradient -39.185 mmHg (0-20)
[2020-05-11] MEDS ORDERED: Sodium Chloride 0.9% 1,000 ML IV SCH (01:00)
[2020-05-11] MEDS ORDERED: Ondansetron ODT 4 MG TAB SL PRN (01:00)
[2020-05-11] MEDS ORDERED: Ondansetron PF 4 MG/2 ML Vial IVP PRN (01:00)
[2020-05-11] MEDS ORDERED: Acetaminophen 325 MG TAB PO PRN ×2 (01:00→01:55)
[2020-05-11 01:54] VITALS: BMI 19.2
[2020-05-11] MEDS ORDERED: Ondansetron ODT 4 MG TAB PO PRN (01:55)
[2020-05-11] MEDS ORDERED: hydrALAZINE 20 MG/ML VIAL SLOW IVP PRN (01:55)
[2020-05-11] MEDS ORDERED: Albuterol Sulfate 2.5 mg/3 ml Neb NEB PRN (03:19)
[2020-05-11 04:02] LABS: #Eosinphils 0.1 thou/uL (0.0-0.7); #Lymphocytes 2.8 thou/uL (1.20-3.40); #Monocytes 0.9 thou/uL (0.11-0.59); #Neutrophils 4.9 thou/uL (1.40-6.50); %Basophils 0.3 % (0.0-1.0); %Lymphocytes 32.4 % (21.0-51.0); %Monocytes 10.6 % (0.0-10.0); %Neutrophils 55.7 % (42.0-75.0); Hemoglobin 11.3 g/dL (12.0-16.0); Mean Corpuscular HGB CONC 32.2 g/dL (32.0-36.0); Mean Corpuscular Hemoglobin 30.3 pg (27.0-31.0); Mean Platelet Volume 6.3 fL (7.4-10.4); Platelet Count 328 thou/uL (130-400); RBC Distribution Width 11.8 % (11.5-14.5); Red Blood Cell (RBC) Count 3.73 mill/uL (4.20-5.40); White Blood Cell (WBC) Count 8.8 thou/uL (4.8-10.8)
[2020-05-11 04:24] LABS: Anion Gap 15 mmol/L (10-20); BUN (Urea Nitrogen) 13 mg/dL (9.8-20.1); Calc. Creatinine Clearance 67 mL/min (70-130); Carbon Dioxide 25 mmol/L (23-31); Cardiac Risk 3.2 (Less than 4.5); Chloride 100 mmol/L (98-107); Cholesterol 194 mg/dl (< 200 Desired); Glucose 82 mg/dL (80-115); HDL Cholesterol 60 mg/dL (>60 Neg Risk); LDL Cholesterol, Calculated 120 mg/dL; Potassium 3.9 mmol/L (3.5-5.1); Sodium 136 mmol/L (136-145); Triglycerides 71 mg/dL (Less than 150)
[2020-05-11 05:00] LABS: SARS-CoV-2 PCR by NAA Not Detected (NotDetected)
[2020-05-11 07:12] LABS: Bilirubin Negative (Negative); Blood, Urine Negative (Negative); Clarity Clear (Clear); Glucose, Urine (Dipstick) Normal (Negative); Ketone, Urine Negative (Negative); Leukocyte 75 Leu/uL (Negative); Nitrite 2+ (Negative); Protein, Urine (Dipstick) 10 mg/dL (Neg-Trace); Squamous Epithelial 0-3 HPF (0-3); Urobilinogen Normal mg/dL (Less than 2)
[2020-05-11 07:33] LABS: RBC/HPF 0-3 HPF (0-3); Specific Gravity, Urine Greater than 1.060 (1.002-1.036); WBC/HPF 0-3 HPF (0-3)
[2020-05-11 07:34] LABS: Bacteria/HPF 1+ HPF (None Seen)
[2020-05-11 07:36] LABS: Urine Culture Reflex Yes Yes
[2020-05-11] MEDS ORDERED: Non-Formulary Item 1 EACH (Budesonide/Formoterol Fumarate [Budesonide-Formoterol 160-4.5] IH SCH (09:00)
[2020-05-11] MEDS ORDERED: Cefdinir 300 MG CAP PO SCH (09:00)
[2020-05-11] MEDS: Dextrose 5% in Water 1,000 ML IV SCH (09:56)
[2020-05-11] MEDS: Aspirin Chewable 81 MG TAB PO SCH (12:29)
[2020-05-11] MEDS: Citalopram 20 MG TAB PO SCH (12:30)
[2020-05-11] MEDS: Famotidine 20 MG TAB PO SCH ×2 (12:30→21:24)
[2020-05-11] MEDS: Donepezil HCl 5 MG TAB PO SCH (12:30)
[2020-05-11] MEDS: methylPREDNISolone Sod Succ 40 MG VIAL IVP SCH ×2 (14:18→21:25)
[2020-05-11] MEDS: cefTRIAXone\\ROCEPHIN 1 GM in Sodium Chloride 0.9% 100 ML IVPB SCH (17:05)
[2020-05-11] MEDS: Mometasone 200 MCG/Formoterol 5 MCG 120 PUFF INHALER INH SCH (18:52)
[2020-05-11] MEDS: Atorvastatin Calcium 20 MG TAB PO SCH (21:24)
[2020-05-12 03:47] LABS: #Lymphocytes 0.5 thou/uL (1.20-3.40); #Monocytes 0.1 thou/uL (0.11-0.59); #Neutrophils 12.6 thou/uL (1.40-6.50); %Eosinophils 0.1 % (0.0-10.0); %Lymphocytes 3.6 % (21.0-51.0); %Neutrophils 95.4 % (42.0-75.0); Hemoglobin 12.1 g/dL (12.0-16.0); Mean Corpuscular HGB CONC 32.3 g/dL (32.0-36.0); Mean Corpuscular Hemoglobin 30.2 pg (27.0-31.0); Mean Corpuscular Volume 93.5 fL (78.0-98.0); Mean Platelet Volume 6.1 fL (7.4-10.4); Platelet Count 322 thou/uL (130-400); RBC Distribution Width 11.7 % (11.5-14.5); Red Blood Cell (RBC) Count 4.01 mill/uL (4.20-5.40); White Blood Cell (WBC) Count 13.2 thou/uL (4.8-10.8)
[2020-05-12 04:16] LABS: Anion Gap 19 mmol/L (10-20); BUN (Urea Nitrogen) 10 mg/dL (9.8-20.1); Calc. Creatinine Clearance 60 mL/min (70-130); Calcium 9.2 mg/dL (7.8-10.44); Carbon Dioxide 24 mmol/L (23-31); Chloride 98 mmol/L (98-107); Glucose 185 mg/dL (80-115); Potassium 3.9 mmol/L (3.5-5.1); Sodium 137 mmol/L (136-145)
[2020-05-12] MEDS: methylPREDNISolone Sod Succ 40 MG VIAL IVP SCH ×3 (05:37→22:51)
[2020-05-12] MEDS: Dextrose 5% in Water 1,000 ML IV SCH (05:37)
[2020-05-12] MEDS: Mometasone 200 MCG/Formoterol 5 MCG 120 PUFF INHALER INH SCH ×2 (07:54→18:25)
[2020-05-12] MEDS: Enoxaparin Sodium 40 MG/0.4 ML SYRINGE SC SCH (09:00)
[2020-05-12] MEDS: Famotidine 20 MG TAB PO SCH ×2 (09:03→20:29)
[2020-05-12] MEDS: Aspirin Chewable 81 MG TAB PO SCH (09:03)
[2020-05-12] MEDS: Donepezil HCl 5 MG TAB PO SCH (09:03)
[2020-05-12] MEDS: Citalopram 20 MG TAB PO SCH (09:03)
[2020-05-12] MEDS: Multivitamins, Adult 10 ML, Folic Acid 1 MG, Thiamine HCl 100 MG in Dextrose 5 %-0.45 %... IV SCH (14:12)
[2020-05-12] MEDS: Sodium Chloride 0.45% 1,000 ML IV SCH (14:19)
[2020-05-12 15:10] LABS: Syphilis Antibody Nonreactive (Nonreactive); Syphilis Antibody Index 0.09 S/CO (<1.00 Non-Reactive)
[2020-05-12 15:16] LABS: Vitamin B12 436 pg/mL (211-911)
[2020-05-12 15:29] LABS: HBCM Index 0.06 S/CO (0-0.79); HIV (1/2) Antibody/Antigen Non-Reactive (NonReactive); HIV 1/2 INDEX 0.14 S/CO (<1.00); Hep A IgM AB Non-Reactive (NonReactive); Hep A IgM S/CO 0.12 S/CO (0-0.79); Hep B Surf Ag Non-Reactive S/CO (NonReactive); Hep C IgG Ab Non-Reactive (NonReactive); Hep C Index 0.06 S/CO (0-0.79); Hepatitis B Core IgM Abs Non-Reactive (NonReactive)
[2020-05-12] MEDS: cefTRIAXone\\ROCEPHIN 1 GM in Sodium Chloride 0.9% 100 ML IVPB SCH (16:42)
[2020-05-12] MEDS: Atorvastatin Calcium 20 MG TAB PO SCH (20:29)
[2020-05-13 03:42] LABS: #Lymphocytes 1.1 thou/uL (1.20-3.40); #Monocytes 0.5 thou/uL (0.11-0.59); #Neutrophils 15.2 thou/uL (1.40-6.50); %Eosinophils 0.1 % (0.0-10.0); %Lymphocytes 6.5 % (21.0-51.0); %Neutrophils 90.3 % (42.0-75.0); Hemoglobin 11.9 g/dL (12.0-16.0); Mean Corpuscular HGB CONC 32.7 g/dL (32.0-36.0); Mean Corpuscular Hemoglobin 30.4 pg (27.0-31.0); Mean Platelet Volume 6.4 fL (7.4-10.4); Platelet Count 337 thou/uL (130-400); RBC Distribution Width 11.8 % (11.5-14.5); Red Blood Cell (RBC) Count 3.92 mill/uL (4.20-5.40); White Blood Cell (WBC) Count 16.8 thou/uL (4.8-10.8)
[2020-05-13 03:53] LABS: Anion Gap 12 mmol/L (10-20); BUN (Urea Nitrogen) 15 mg/dL (9.8-20.1); Calc. Creatinine Clearance 63 mL/min (70-130); Calcium 9.3 mg/dL (7.8-10.44); Carbon Dioxide 29 mmol/L (23-31); Chloride 102 mmol/L (98-107); Glucose 137 mg/dL (80-115); Potassium 4.4 mmol/L (3.5-5.1); Sodium 139 mmol/L (136-145)
[2020-05-13] MEDS: methylPREDNISolone Sod Succ 40 MG VIAL IVP SCH ×3 (05:35→20:49)
[2020-05-13] MEDS: Sodium Chloride 0.45% 1,000 ML IV SCH ×2 (06:43→15:21)
[2020-05-13] MEDS: Mometasone 200 MCG/Formoterol 5 MCG 120 PUFF INHALER INH SCH ×2 (08:35→19:13)
[2020-05-13] MEDS: Aspirin Chewable 81 MG TAB PO SCH (10:49)
[2020-05-13] MEDS: Citalopram 20 MG TAB PO SCH (10:49)
[2020-05-13] MEDS: Enoxaparin Sodium 40 MG/0.4 ML SYRINGE SC SCH (10:50)
[2020-05-13] MEDS: Donepezil HCl 5 MG TAB PO SCH (10:50)
[2020-05-13] MEDS: Famotidine 20 MG TAB PO SCH ×2 (10:50→20:24)
[2020-05-13 10:54] LABS: CSF Source CSF
[2020-05-13 10:55] LABS: Clarity Clear (Clear); Tube # 2
[2020-05-13 11:05] LABS: CSF, Glucose 89 mg/dl (40-70); CSF, Protein 25 mg/dL (15-40)
[2020-05-13 13:29] LABS: Color Of CSF Supernatant COLORLESS (Colorless); Tube # 2; Unspun CSF Color COLORLESS (Colorless)
[2020-05-13] MEDS: Multivitamins, Adult 10 ML, Folic Acid 1 MG, Thiamine HCl 100 MG in Dextrose 5 %-0.45 %... IV SCH (14:13)
[2020-05-13] MEDS: cefTRIAXone\\ROCEPHIN 1 GM in Sodium Chloride 0.9% 100 ML IVPB SCH (17:42)
[2020-05-13] MEDS: Atorvastatin Calcium 20 MG TAB PO SCH (20:23)
[2020-05-14] MEDS: methylPREDNISolone Sod Succ 40 MG VIAL IVP SCH (05:28)
[2020-05-14] MEDS: Sodium Chloride 0.45% 1,000 ML IV SCH ×3 (06:05→23:16)
[2020-05-14] MEDS: Mometasone 200 MCG/Formoterol 5 MCG 120 PUFF INHALER INH SCH ×2 (07:15→18:34)
[2020-05-14] MEDS: Enoxaparin Sodium 40 MG/0.4 ML SYRINGE SC SCH (08:58)
[2020-05-14] MEDS: Famotidine 20 MG TAB PO SCH ×2 (09:41→21:01)
[2020-05-14] MEDS: Citalopram 20 MG TAB PO SCH (09:41)
[2020-05-14] MEDS: Aspirin Chewable 81 MG TAB PO SCH (09:41)
[2020-05-14] MEDS: Donepezil HCl 5 MG TAB PO SCH (09:41)
[2020-05-14 11:15] LABS: Lyme IgG/IgM AB <0.91 ISR (0.00-0.90)
[2020-05-14] MEDS ORDERED: Folic Acid 1 MG, Multivitamins, Adult 10 ML in Dextrose 5 %-0.45 % NaCl 1,000 ML IV SCH (15:00)
[2020-05-14] MEDS ORDERED: Thiamine HCl 200 MG/2 ML VIAL SLOW IVP SCH (15:00)
[2020-05-14] MEDS: cefTRIAXone\\ROCEPHIN 1 GM in Sodium Chloride 0.9% 100 ML IVPB SCH (16:59)
[2020-05-14 18:38] LABS: CMV IgG AB Greater than 10.00 U/mL (0.00-0.59)
[2020-05-14] MEDS: Atorvastatin Calcium 20 MG TAB PO SCH (21:01)
[2020-05-14 23:08] LABS: HSV-2 IgG Type Specific Less than 0.91 index (0.00-0.90)
[2020-05-15] MEDS: Mometasone 200 MCG/Formoterol 5 MCG 120 PUFF INHALER INH SCH (06:41)
[2020-05-15] MEDS: Aspirin Chewable 81 MG TAB PO SCH (08:21)
[2020-05-15] MEDS: Enoxaparin Sodium 40 MG/0.4 ML SYRINGE SC SCH (08:22)
[2020-05-15] MEDS: Donepezil HCl 5 MG TAB PO SCH (08:22)
[2020-05-15] MEDS: Famotidine 20 MG TAB PO SCH (08:22)
[2020-05-15] MEDS ORDERED: methylPREDNISolone Sod Succ 40 MG VIAL IVP SCH (09:00)
[2020-05-15 11:43] VITALS: TEMP 98
[2020-05-15 13:22] LABS: #Lymphocytes 0.9 thou/uL (1.20-3.40); #Monocytes 0.3 thou/uL (0.11-0.59); #Neutrophils 8.9 thou/uL (1.40-6.50); %Basophils 0.3 % (0.0-1.0); %Eosinophils 0.3 % (0.0-10.0); %Lymphocytes 8.5 % (21.0-51.0); %Monocytes 2.6 % (0.0-10.0); %Neutrophils 88.4 % (42.0-75.0); Hemoglobin 12.6 g/dL (12.0-16.0); Mean Corpuscular HGB CONC 31.8 g/dL (32.0-36.0); Mean Corpuscular Hemoglobin 29.9 pg (27.0-31.0); Mean Corpuscular Volume 94.2 fL (78.0-98.0); Mean Platelet Volume 6.4 fL (7.4-10.4); Platelet Count 321 thou/uL (130-400); RBC Distribution Width 11.6 % (11.5-14.5); Red Blood Cell (RBC) Count 4.21 mill/uL (4.20-5.40)
[2020-05-15 13:49] LABS: Anion Gap 12 mmol/L (10-20); BUN (Urea Nitrogen) 15 mg/dL (9.8-20.1); Calc. Creatinine Clearance 61 mL/min (70-130); Calcium 8.7 mg/dL (7.8-10.44); Carbon Dioxide 28 mmol/L (23-31); Chloride 103 mmol/L (98-107); Glucose 171 mg/dL (80-115); Potassium 4.2 mmol/L (3.5-5.1); Sodium 139 mmol/L (136-145)
[2020-05-15 15:38] LABS: Myelin Basic Protein, CSF 4.3 ng/mL (0.0-4.7)
[2020-05-15 16:16] VITALS: BP 146/73
[2020-05-15 17:38] LABS: Neuron Specific Enolase-CSF 3.1 ug/L (1.0-7.0)
[2020-05-16] MEDS ORDERED: predniSONE 20 MG TAB PO SCH (09:00)
[2020-05-17 14:39] LABS: West Nile Virus IgG Ab - CSF Negative (Negative); West Nile Virus IgM Ab - CSF Negative (Negative)
== END 2020-05-15 18:20 | disposition home or self-care (01) | DRG 884 ==
LOC: ERS 19:36 → IMCU/EMU 22:46 → 2SE 05-14 01:05
PROVIDERS: ADMIT Internal Medicine; ATTEND Internal Medicine
PROC: 009U3ZX Drainage of Spinal Canal, Percutaneous Approach, Diagnostic (ICD-10-PCS; principal; 2020-05-13)
DX: F03.90 Unspecified dementia, unspecified severity, without behavioral disturbance, psychotic disturbance, mood disturbance, and anxiety (principal); G93.41 Metabolic encephalopathy; R47.01 Aphasia; C34.90 Malignant neoplasm of unspecified part of unspecified bronchus or lung; J96.11 Chronic respiratory failure with hypoxia; J96.12 Chronic respiratory failure with hypercapnia; N30.00 Acute cystitis without hematuria; F94.0 Selective mutism; F44.4 Conversion disorder with motor symptom or deficit; Z20.822 Contact with and (suspected) exposure to COVID-19; J43.9 Emphysema, unspecified; F39 Unspecified mood [affective] disorder; G93.89 Other specified disorders of brain; B96.20 Unspecified Escherichia coli [E. coli] as the cause of diseases classified elsewhere; G31.84 Mild cognitive impairment of uncertain or unknown etiology; Z79.51 Long term (current) use of inhaled steroids; Z79.52 Long term (current) use of systemic steroids; Z79.899 Other long term (current) drug therapy; Z99.81 Dependence on supplemental oxygen; Z99.89 Dependence on other enabling machines and devices
CPT/HCPCS: 36415; 36416; 62270; 70450; 70496; 70498; 70551; 71045; 80048; 80053; 80061; 80074; 81001; 82140; 82306; 82533; 82607; 82746; 82805; 82945; 83605; 83873; 83970; 84157; 84443; 84484; 85025; 85610; 85730; 86316; 86592; 86612; 86618; 86635; 86644; 86645; 86694; 86695; 86696; 86698; 86780; 86788; 86789; 87077; 87086; 87186; 87389; 87635; 87899; 89051; 93005; 93306; 94640; 95712; 95819; 95957; J0696; J1650; J2920; J3411; J3490; J7042; J7620; Q9967; U0003; U0005

== ENCOUNTER 2022-09-01 09:13 | Inpatient (IN) | payer MEDICARE, BC ==
[2022-09-01] MEDS ORDERED: Haloperidol Lactate 5 MG/ML VIAL ONE (09:33)
[2022-09-01 09:51] LABS: Analyzer IN Cardio ER; Base Excess 6.9 mEq/L (-2.0 to +3.0); Calcium, Ionized (venous) 1.13 mmol/L (1.16-1.32); Chloride (VBG) 81 mmol/L (98-106); Hematocrit-VBG 44 % (36.0-47.0); Hemoglobin (Hb) 15.1 g/dL (11.7-16.1); Potassium (VBG) 3.89 mmol/L (3.70-5.30); pH (venous) 7.348 (7.32-7.43)
[2022-09-01] MEDS ORDERED: Ipratropium Bromide 2.5 ml Neb ONE (09:53)
[2022-09-01] MEDS ORDERED: cefTRIAXone (ROCEPHIN) 2 GM VIAL ONE (09:56)
[2022-09-01] MEDS ORDERED: Magnesium 2 GM/50 ML BAG (IN WATER) ONE (09:56)
[2022-09-01] MEDS ORDERED: methylPREDNISolone Sod Succ/PF 125 MG/2 ML VIAL ONE (09:56)
[2022-09-01] MEDS ORDERED: Azithromycin 500 MG VIAL ONE (09:56)
[2022-09-01 10:09] LABS: #Monocytes 1.6 thou/uL (0.11-0.59); #Neutrophils 10.7 thou/uL (1.40-6.50); %Basophils 0.3 % (0.0-1.0); %Lymphocytes 14.4 % (21.0-51.0); %Monocytes 10.8 % (0.0-10.0); %Neutrophils 73.9 % (42.0-75.0); Mean Corpuscular HGB CONC 33.3 g/dL (32.0-36.0); Mean Corpuscular Hemoglobin 28.8 pg (27.0-31.0); Mean Corpuscular Volume 86.6 fl (78.0-98.0); Mean Platelet Volume 9.1 fL (7.4-10.4); Platelet Count 333 10x3/uL (130-400); RBC Distribution Width 12.8 % (11.5-14.5); Red Blood Cell (RBC) Count 4.86 mill/uL (4.20-5.40); White Blood Cell (WBC) Count 14.5 10x3/uL (4.8-10.8)
[2022-09-01 10:36] LABS: ALT (SGPT) 35 U/L (8-55); AST (SGOT) 46 U/L (5-34); Albumin 4.3 g/dL (3.4-4.8); Alkaline Phosphatase 89 U/L (40-110); Anion Gap 17 mmol/L (10-20); BUN (Urea Nitrogen) 18 mg/dL (9.8-20.1); Calc. Creatinine Clearance 0 mL/min (70-130); Calcium 10.2 mg/dL (7.8-10.44); Carbon Dioxide 36 mmol/L (23-31); Chloride 81 mmol/L (98-107); Estimated GFR 79; Globulin 3.1 g/dL (2.4-3.5); Glucose 150 mg/dL (80-115); Potassium 3.8 mmol/L (3.5-5.1); Protein, Total 7.4 g/dL (5.8-8.1); Sodium 130 mmol/L (136-145)
[2022-09-01] MEDS ORDERED: Ipratropium/Albuterol 3 ML NEB NEB PRN (12:06)
[2022-09-01] MEDS ORDERED: Ondansetron ODT 4 MG TAB PO PRN (12:06)
[2022-09-01] MEDS ORDERED: Acetaminophen 325 MG TAB PO PRN (12:06)
[2022-09-01] MEDS ORDERED: hydrALAZINE 20 MG/ML VIAL SLOW IVP PRN (12:06)
[2022-09-01 14:03] VITALS: BMI 20.9
[2022-09-01] MEDS: Ipratropium/Albuterol 3 ML NEB NEB SCH ×2 (14:11→18:33)
[2022-09-01] MEDS: Mometasone/Formoterol 200/5 60 PUFF INH SCH (18:33)
[2022-09-01] MEDS ORDERED: Donepezil HCl 10 MG TAB PO SCH (22:45)
[2022-09-01] MEDS ORDERED: Haloperidol Lactate 5 MG/ML VIAL SLOW IVP SCH (23:00)
[2022-09-02] MEDS ORDERED: Haloperidol Lactate 5 MG/ML VIAL IM SCH (01:00)
[2022-09-02] MEDS: Ipratropium/Albuterol 3 ML NEB NEB SCH ×3 (02:57→12:09)
[2022-09-02] MEDS: Lorazepam 0.5 MG TAB PO SCH ×3 (03:18→20:44)
[2022-09-02 05:24] LABS: #Monocytes 2.6 thou/uL (0.11-0.59); #Neutrophils 12.1 thou/uL (1.40-6.50); %Basophils 0.1 % (0.0-1.0); %Lymphocytes 7.5 % (21.0-51.0); Hemoglobin 12.8 g/dL (12.0-16.0); Mean Corpuscular HGB CONC 33.6 g/dL (32.0-36.0); Mean Corpuscular Hemoglobin 29.1 pg (27.0-31.0); Mean Corpuscular Volume 86.6 fl (78.0-98.0); Mean Platelet Volume 9.4 fL (7.4-10.4); Platelet Count 306 10x3/uL (130-400); RBC Distribution Width 12.8 % (11.5-14.5); White Blood Cell (WBC) Count 15.9 10x3/uL (4.8-10.8)
[2022-09-02 05:46] LABS: Anion Gap 19 mmol/L (10-20); BUN (Urea Nitrogen) 18 mg/dL (9.8-20.1); Calc. Creatinine Clearance 55 mL/min (70-130); Calcium 9.4 mg/dL (7.8-10.44); Carbon Dioxide 32 mmol/L (23-31); Chloride 83 mmol/L (98-107); Estimated GFR 74; Glucose 133 mg/dL (80-115); Potassium 3.6 mmol/L (3.5-5.1); Sodium 130 mmol/L (136-145)
[2022-09-02] MEDS: Mometasone/Formoterol 200/5 60 PUFF INH SCH (06:54)
[2022-09-02] MEDS: OLANZapine 5 MG TAB PO SCH (10:32)
[2022-09-02] MEDS: Citalopram 10 MG TAB PO SCH ×3 (10:32→20:44)
[2022-09-02] MEDS: busPIRone HCl 5 MG TAB PO SCH ×2 (10:32→20:44)
[2022-09-02] MEDS: methylPREDNISolone Sod Succ 40 MG VIAL IVP SCH (10:33)
[2022-09-02] MEDS: cefTRIAXone\\ROCEPHIN 1 GM in Sodium Chloride 0.9% 100 ML IVPB SCH (10:33)
[2022-09-02] MEDS: Azithromycin 500 MG in Sodium Chloride 0.9% 250 ML 250 ML IVPB SCH (14:16)
[2022-09-02] MEDS ORDERED: Ipratropium/Albuterol 3 ML NEB NEB PRN (17:03)
[2022-09-02] MEDS: Donepezil HCl 10 MG TAB PO SCH (20:44)
[2022-09-02] MEDS: traZODone HCl 50 MG TAB PO PRN (20:44)
[2022-09-02] MEDS ORDERED: Donepezil HCl 5 MG TAB PO SCH (21:00)
[2022-09-03] MEDS: methylPREDNISolone Sod Succ 40 MG VIAL IVP SCH (09:06)
[2022-09-03] MEDS: Lorazepam 0.5 MG TAB PO SCH ×2 (09:07→21:36)
[2022-09-03] MEDS: Citalopram 10 MG TAB PO SCH ×3 (09:07→21:26)
[2022-09-03] MEDS: busPIRone HCl 5 MG TAB PO SCH ×2 (09:07→21:26)
[2022-09-03] MEDS: OLANZapine 5 MG TAB PO SCH (09:07)
[2022-09-03] MEDS: cefTRIAXone\\ROCEPHIN 1 GM in Sodium Chloride 0.9% 100 ML IVPB SCH (11:28)
[2022-09-03] MEDS: Azithromycin 500 MG in Sodium Chloride 0.9% 250 ML 250 ML IVPB SCH (12:43)
[2022-09-03] MEDS ORDERED: OLANZapine 5 MG TAB PO SCH (20:30)
[2022-09-03] MEDS ORDERED: OLANZapine 10 MG VIAL IM SCH (21:15)
[2022-09-03] MEDS ORDERED: Sterile Water 10 ML VIAL FS PRN (21:15)
[2022-09-03] MEDS: Donepezil HCl 10 MG TAB PO SCH (21:27)
[2022-09-04] MEDS: OLANZapine 5 MG TAB PO SCH (09:09)
[2022-09-04] MEDS: Citalopram 10 MG TAB PO SCH ×3 (09:09→20:33)
[2022-09-04] MEDS: busPIRone HCl 5 MG TAB PO SCH ×2 (09:09→20:33)
[2022-09-04] MEDS: Lorazepam 0.5 MG TAB PO SCH ×2 (09:09→20:33)
[2022-09-04] MEDS: methylPREDNISolone Sod Succ 40 MG VIAL IVP SCH ×2 (09:10→09:19)
[2022-09-04] MEDS ORDERED: OLANZapine 5 MG TAB PO SCH ×2 (11:15→21:00)
[2022-09-04] MEDS: cefTRIAXone\\ROCEPHIN 1 GM in Sodium Chloride 0.9% 100 ML IVPB SCH (12:11)
[2022-09-04] MEDS: Azithromycin 500 MG in Sodium Chloride 0.9% 250 ML 250 ML IVPB SCH (12:52)
[2022-09-04] MEDS: Donepezil HCl 10 MG TAB PO SCH (20:34)
[2022-09-05] MEDS: Lorazepam 0.5 MG TAB PO SCH ×2 (09:20→21:31)
[2022-09-05] MEDS: busPIRone HCl 5 MG TAB PO SCH ×2 (09:20→21:31)
[2022-09-05] MEDS: OLANZapine 5 MG TAB PO SCH (09:20)
[2022-09-05] MEDS: methylPREDNISolone Sod Succ 40 MG VIAL IVP SCH (09:21)
[2022-09-05] MEDS: Citalopram 10 MG TAB PO SCH ×3 (09:21→21:31)
[2022-09-05] MEDS: cefTRIAXone\\ROCEPHIN 1 GM in Sodium Chloride 0.9% 100 ML IVPB SCH (11:50)
[2022-09-05] MEDS: Azithromycin 500 MG in Sodium Chloride 0.9% 250 ML 250 ML IVPB SCH (12:38)
[2022-09-05] MEDS: Donepezil HCl 10 MG TAB PO SCH (21:31)
[2022-09-06 05:11] LABS: #Eosinphils 0.1 thou/uL (0.0-0.7); #Monocytes 1.3 thou/uL (0.11-0.59); %Basophils 0.2 % (0.0-1.0); %Eosinophils 0.5 % (0.0-10.0); %Lymphocytes 23.4 % (21.0-51.0); %Monocytes 8.1 % (0.0-10.0); %Neutrophils 67.4 % (42.0-75.0); Mean Corpuscular HGB CONC 32.3 g/dL (32.0-36.0); Mean Corpuscular Volume 89.5 fl (78.0-98.0); Mean Platelet Volume 8.9 fL (7.4-10.4); Platelet Count 380 10x3/uL (130-400); RBC Distribution Width 13.1 % (11.5-14.5); Red Blood Cell (RBC) Count 4.49 mill/uL (4.20-5.40); White Blood Cell (WBC) Count 16.3 10x3/uL (4.8-10.8)
[2022-09-06 05:36] LABS: Anion Gap 14 mmol/L (10-20); BUN (Urea Nitrogen) 10 mg/dL (9.8-20.1); Calc. Creatinine Clearance 77 mL/min (70-130); Calcium 8.8 mg/dL (7.8-10.44); Carbon Dioxide 36 mmol/L (23-31); Chloride 90 mmol/L (98-107); Estimated GFR 97; Glucose 91 mg/dL (80-115); Potassium 3.6 mmol/L (3.5-5.1); Sodium 136 mmol/L (136-145)
[2022-09-06] MEDS: Lorazepam 0.5 MG TAB PO SCH ×2 (08:47→20:56)
[2022-09-06] MEDS: OLANZapine 5 MG TAB PO SCH (08:48)
[2022-09-06] MEDS: methylPREDNISolone Sod Succ 40 MG VIAL IVP SCH (08:49)
[2022-09-06] MEDS: Citalopram 10 MG TAB PO SCH ×3 (08:49→20:57)
[2022-09-06] MEDS: busPIRone HCl 5 MG TAB PO SCH ×2 (08:49→20:57)
[2022-09-06] MEDS: cefTRIAXone\\ROCEPHIN 1 GM in Sodium Chloride 0.9% 100 ML IVPB SCH (11:20)
[2022-09-06] MEDS: Azithromycin 500 MG in Sodium Chloride 0.9% 250 ML 250 ML IVPB SCH (12:10)
[2022-09-06] MEDS: traZODone HCl 50 MG TAB PO PRN (20:57)
[2022-09-06] MEDS: Donepezil HCl 10 MG TAB PO SCH (20:57)
[2022-09-07 06:42] LABS: #Eosinphils 0.1 thou/uL (0.0-0.7); #Monocytes 1.2 thou/uL (0.11-0.59); #Neutrophils 9.5 thou/uL (1.40-6.50); %Basophils 0.2 % (0.0-1.0); %Eosinophils 0.7 % (0.0-10.0); %Neutrophils 66.7 % (42.0-75.0); Hemoglobin 12.3 g/dL (12.0-16.0); Mean Corpuscular HGB CONC 32.2 g/dL (32.0-36.0); Mean Corpuscular Hemoglobin 29.1 pg (27.0-31.0); Mean Corpuscular Volume 90.5 fl (78.0-98.0); Mean Platelet Volume 8.7 fL (7.4-10.4); Platelet Count 349 10x3/uL (130-400); RBC Distribution Width 13.1 % (11.5-14.5); Red Blood Cell (RBC) Count 4.22 mill/uL (4.20-5.40); White Blood Cell (WBC) Count 14.3 10x3/uL (4.8-10.8)
[2022-09-07 07:09] LABS: Anion Gap 12 mmol/L (10-20); BUN (Urea Nitrogen) 11 mg/dL (9.8-20.1); Calc. Creatinine Clearance 80 mL/min (70-130); Calcium 8.5 mg/dL (7.8-10.44); Carbon Dioxide 37 mmol/L (23-31); Chloride 94 mmol/L (98-107); Estimated GFR 98; Glucose 90 mg/dL (80-115); Potassium 3.8 mmol/L (3.5-5.1); Sodium 139 mmol/L (136-145)
[2022-09-07 07:32] VITALS: BP 146/59; TEMP 98.1
[2022-09-07] MEDS: methylPREDNISolone Sod Succ 40 MG VIAL IVP SCH (09:48)
[2022-09-07] MEDS: Citalopram 10 MG TAB PO SCH ×2 (09:49→12:33)
[2022-09-07] MEDS: busPIRone HCl 5 MG TAB PO SCH ×2 (09:49→12:32)
[2022-09-07] MEDS: Lorazepam 0.5 MG TAB PO SCH ×2 (09:49→12:33)
[2022-09-07] MEDS: OLANZapine 5 MG TAB PO SCH ×2 (09:49→12:33)
[2022-09-07] MEDS: cefTRIAXone\\ROCEPHIN 1 GM in Sodium Chloride 0.9% 100 ML IVPB SCH (11:30)
[2022-09-07] MEDS: Azithromycin 500 MG in Sodium Chloride 0.9% 250 ML 250 ML IVPB SCH (11:30)
== END 2022-09-07 14:18 | DRG 189 ==
LOC: ERS 09:13 → 2NO 13:21 → T4-A 09-06 15:23
PROVIDERS: ADMIT Internal Medicine; ATTEND Internal Medicine
DX: J96.21 Acute and chronic respiratory failure with hypoxia (principal); J44.1 Chronic obstructive pulmonary disease with (acute) exacerbation; R47.01 Aphasia; G93.1 Anoxic brain damage, not elsewhere classified; F32.3 Major depressive disorder, single episode, severe with psychotic features; Z66 Do not resuscitate; J96.22 Acute and chronic respiratory failure with hypercapnia; G31.84 Mild cognitive impairment of uncertain or unknown etiology; R91.8 Other nonspecific abnormal finding of lung field; Z85.118 Personal history of other malignant neoplasm of bronchus and lung; Z79.899 Other long term (current) drug therapy; Z98.890 Other specified postprocedural states; Z80.9 Family history of malignant neoplasm, unspecified; Z86.711 Personal history of pulmonary embolism
CPT/HCPCS: 36415; 36416; 71045; 80048; 80053; 82805; 83605; 83880; 83930; 84484; 85025; 87040; 93005; 94760; 96365; 96367; 96372; 96375; J0456; J0696; J1630; J1650; J2920; J2930; J3475; J3490; J7050; J7620